=== PATIENT | female | born 1990 | race Caucasian/White ===

== ENCOUNTER 2019-04-21 05:07 | Emergency (ER) | payer SELFPAY ==
[2019-04-21 06:04] LABS: Urine Blood 1+ (NEG); Urine Glucose NEGATIVE (NEG); Urine Protein TRACE (NEG); Urine Specific Gravity 1.025 (1.005-1.030); Urine pH 5.5 (5.0-7.0)
[2019-04-21 06:07] LABS: Basophils % 0.8 % (0-1.3); Eosinophils % 2.6 % (0-4.4); Hematocrit 36.2 % (36.0-45.0); Lymphocytes % 30.9 % (15.3-44.8); MPV 8.6 fL (7.6-11.3); Monocytes % 8.1 % (3.3-12.3); RBC Red Blood Cell Count 4.77 M/uL (3.86-4.86)
[2019-04-21 06:21] LABS: BUN Blood Urea Nitrogen 13 mg/dL (7-18); Bicarbonate 28 mmol/L (21-32); Glucose Level 124 mg/dL (74-106); Potassium 3.7 mmol/L (3.5-5.1); Sodium Level 138 mmol/L (136-145)
--- NOTE | 2019-04-21 08:39 | EDPHYS ---
Physician Documentation [facility] Name: Miley Calderón Age: 29 yrs Sex: Female : 1990 Arrival Date: 04/21/2019 Time: 05:11 Bed 14 Private MD: Von Oliveira ED Physician Sancho Buchanan HPI: 04/21 06:22 This 29 yrs old Female presents to ER via Ambulatory with complaints of jr8 Headache, Dizziness, Nausea. 06:22 The patient complains of pain to the left base of the skull and right base of the jr8 skull. The patient describes the headache as throbbing. Onset: The symptoms/episode began/occurred acutely, today. Associated signs and symptoms: Pertinent positives: dizziness, nausea. Severity of symptoms: At its worst the pain was moderate, in the emergency department the pain has improved, mildly. Headache History: The patient has had previous headaches and this one is different than previous episodes. The symptoms are alleviated by nothing. the symptoms are aggravated by lights, movement, noise. The patient has not experienced similar symptoms in the past. The patient has not recently seen a physician. Patient status post coitus with sudden onset headache. 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 - Social history:: Smoking status: Patient/guardian denies using tobacco. - Ebola Screening: : No symptoms or risks identified at this time. ROS: 06:22 Eyes: Negative for injury, pain, redness, and discharge, ENT: Negative for injury, jr8 pain, and discharge, Neck: Negative for injury, pain, and swelling, Cardiovascular: Negative for chest pain, palpitations, and edema, Respiratory: Negative for shortness of breath, cough, wheezing, and pleuritic chest pain, Back: Negative for injury and pain, MS/Extremity: Negative for injury and deformity, Skin: Negative for injury, rash, and discoloration. 06:22 Abdomen/GI: Positive for nausea, Negative for abdominal pain, vomiting, diarrhea, abdominal cramps, abdominal distension, anorexia, dysphagia, hematemesis, black/tarry stool, rectal pain, rectal bleeding, bowel incontinence, flatulence. 06:22 Neuro: Positive for dizziness, headache. Exam: 06:22 Eyes: Pupils equal round and reactive to light, extra-ocular motions intact. Lids and jr8 lashes normal. Conjunctiva and sclera are non-icteric and not injected. Cornea within normal limits. Periorbital areas with no swelling, redness, or edema. ENT: Nares patent. No nasal discharge, no septal abnormalities noted. Tympanic membranes are normal and external auditory canals are clear. Oropharynx with no redness, swelling, or masses, exudates, or evidence of obstruction, uvula midline. Mucous membranes moist. Neck: Trachea midline, no thyromegaly or masses palpated, and no cervical lymphadenopathy. Supple, full range of motion without nuchal rigidity, or vertebral point tenderness. No Meningismus. Cardiovascular: Regular rate and rhythm with a normal S1 and S2. No gallops, murmurs, or rubs. Normal PMI, no JVD. No pulse deficits. Respiratory: Lungs have equal breath sounds bilaterally, clear to auscultation and percussion. No rales, rhonchi or wheezes noted. No increased work of breathing, no retractions or nasal flaring. Abdomen/GI: Soft, non-tender, with normal bowel sounds. No distension or tympany. No guarding or rebound. No evidence of tenderness throughout. Back: No spinal tenderness. No costovertebral tenderness. Full range of motion. Skin: Warm, dry with normal turgor. Normal color with no rashes, no lesions, and no evidence of cellulitis. MS/ Extremity: Pulses equal, no cyanosis. Neurovascular intact. Full, normal range of motion. Neuro: Awake and alert, GCS 15, oriented to person, place, time, and situation. Cranial nerves II-XII grossly intact. Motor strength 5/5 in all extremities. Sensory grossly intact. Cerebellar exam normal. Normal gait. Vital Signs: 05:31 BP 142 / 108; Pulse 112; Resp 18; Temp 98.1(O); Pulse Ox 100% on R/A; Weight 95.25 kg; lp1 Height 5 ft. 4 in. (162.56 cm); Pain 2/10; 06:30 BP 145 / 84; Pulse 103; Resp 18; Pulse Ox 100% on R/A; lp1 07:46 BP 133 / 75; Pulse 95; Resp 14; Temp 98.2(O); Pulse Ox 99% on R/A; Pain 0/10; ls4 05:31 Body Mass Index 36.05 (95.25 kg, 162.56 cm) lp1 MDM: 06:08 Patient medically screened. jr8 08:36 Data reviewed: vital signs, nurses notes, lab test result(s), radiologic studies, CT jr8 scan. Data interpreted: Pulse oximetry: on room air is 99 %. Interpretation: normal. Counseling: I had a detailed discussion with the patient and/or guardian regarding: the historical points, exam findings, and any diagnostic results supporting the discharge/admit diagnosis, lab results, radiology results, the need for outpatient follow up, a family practitioner, to return to the emergency department if symptoms worsen or persist or if there are any questions or concerns that arise at home. Response to treatment: the patient's symptoms have markedly improved after treatment. ED course: Patient opted not to have CTA completed due to financial constraints. Recommended close f/u at this point. Symptoms resolving and with no focal deficits or acute physical exam findings. VS stable. Will d/c home and if worse to come back immediately. Patient good with this plan . 04/21 05:42 Order name: CBC with Diff; Complete Time: 06:51 gs 04/21 05:42 Order name: Basic Metabolic Panel; Complete Time: 06:51 gs 04/21 05:42 Order name: CT Head Brain wo Cont 04/21 06:00 Order name: Urine Dipstick--Ancillary (enter results) ar5 04/21 06:00 Order name: Urine --Ancillary (enter results); Complete Time: 06:21 ar5 04/21 06:01 Order name: Urine Dipstick-Ancillary; Complete Time: 06:21 EDMA 04/21 05:42 Order name: Urine Test (obtain specimen); Complete Time: 06:23 gs 04/21 05:42 Order name: Urine Dipstick-Ancillary (obtain specimen); Complete Time: 06:23 gs Administered Medications: No medications were administered Disposition: 04/21/19 08:38 Discharged to Home. Impression: Headache associated with sexual activity. - Condition is Stable. - Discharge Instructions: General Headache Without Cause. - Medication Reconciliation Form, Thank You Letter, Antibiotic Education, Prescription Opioid Use form. - Follow up: Private Physician; When: 1 - 2 days; Reason: Recheck today's complaints, Continuance of care, Re-evaluation by your physician. - Problem is new. - Symptoms have improved. Signatures: Dispatcher [employer] [facility] Darlene Barrios, RN RN lp1 Jet Bryant PA PA jr8 Sancho Buchanan MD MD gs Flor Thrasher RN RN ls4 Corrections: (The following items were deleted from the chart) 06:17 06:12 Head Brain Wo Cont+CT.RAD.BRZ ordered. [facility] 08:59 08:38 04/21/2019 08:38 Discharged to Home. Impression: Headache associated with sexual ls4 activity. Condition is Stable. Forms are Medication Reconciliation Form, Thank You Letter, Antibiotic Education, Prescription Opioid Use. Follow up: Private Physician; When: 1 - 2 days; Reason: Recheck today's complaints, Continuance of care, Re-evaluation by your physician. Problem is new. Symptoms have improved. jr8
--- NOTE | 2019-04-21 08:39 | ER ---
Nurse's Notes [facility] Name: Miley Calderón Age: 29 yrs Sex: Female : 1990 Arrival Date: 04/21/2019 Time: 05:11 Bed 14 Private MD: Von Oliveira Diagnosis: Headache associated with sexual activity Presentation: 04/21 05:27 Presenting complaint: Patient states: About 0430, patient began having migraine lp1 like-symptoms in head radiating down neck, "It was post-orgasm and I began having throbbing in the back of my head, blurred vision for about 20 minutes. I can feel transient like tingling on the sides of my head right now"; Patient states blurred vision is resolving at this time; Complaint of nausea, dizziness; Denies any light sensitivity, vomiting;. 05:31 Transition of care: patient was not received from another setting of care. Onset of lp1 symptoms was April 21, 2019 at 04:30. Risk Assessment: Do you want to hurt yourself or someone else? Patient reports no desire to harm self or others. Initial Sepsis Screen: Does the patient meet any 2 criteria? No. Patient's initial sepsis screen is negative. Does the patient have a suspected source of infection? No. Patient's initial sepsis screen is negative. Care prior to arrival: None. 05:31 Method Of Arrival: Ambulatory lp1 05:31 Acuity: JIMMY 3 lp1 Triage Assessment: 05:34 Headache History: The patient has had previous headaches and this one is more severe lp1 than previous episodes. 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 - Social history:: Smoking status: Patient/guardian denies using tobacco. - Ebola Screening: : No symptoms or risks identified at this time. Screenin:34 Abuse screen: Denies threats or abuse. Denies injuries from another. Nutritional lp1 screening: No deficits noted. Tuberculosis screening: No symptoms or risk factors identified. Fall Risk None identified. Assessment: 05:33 General: Appears in no apparent distress. Behavior is anxious. Pain: Complains of pain lp1 in back of head Pain currently is 2 out of 10 on a pain scale. Pain began 1 hour ago. Also complains of nausea, dizziness. Neuro: Level of Consciousness is awake, alert, obeys commands, Oriented to person, place, time, situation, Hardware Installation Coordinator are equal bilaterally Moves all extremities. Full function Gait is steady, Speech is normal, Pupils are PERRLA, Intact Reports dizziness, headache pressure behind eyes. Cardiovascular: Patient's skin is warm and dry. Respiratory: Respiratory effort is even, unlabored. GI: Abdomen is non-distended, Reports nausea. : No signs and/or symptoms were reported regarding the genitourinary system. EENT: No signs and/or symptoms were reported regarding the EENT system. Derm: Skin is pink, warm \\T\\ dry. Musculoskeletal: No deficits noted. 06:30 Reassessment: Patient appears in no apparent distress at this time. Patient is alert, lp1 oriented x 3, equal unlabored respirations, skin warm/dry/pink. 07:48 Reassessment: Patient appears in no apparent distress at this time. Patient and/or ls4 family updated on plan of care and expected duration. Pain level reassessed. Patient is alert, oriented x 3, equal unlabored respirations, skin warm/dry/pink. 08:36 Reassessment: pt refused ct angio. Jet MASCORRO notified. ls4 Vital Signs: 05:31 BP 142 / 108; Pulse 112; Resp 18; Temp 98.1(O); Pulse Ox 100% on R/A; Weight 95.25 kg; lp1 Height 5 ft. 4 in. (162.56 cm); Pain 2/10; 06:30 BP 145 / 84; Pulse 103; Resp 18; Pulse Ox 100% on R/A; lp1 07:46 BP 133 / 75; Pulse 95; Resp 14; Temp 98.2(O); Pulse Ox 99% on R/A; Pain 0/10; ls4 05:31 Body Mass Index 36.05 (95.25 kg, 162.56 cm) lp1 ED Course: 05:11 Patient arrived in ED. do 05:12 Von Oliveira MD is Private Physician. do 05:27 Darlene Barrios, KENNETH is Primary Nurse. lp1 05:31 Triage completed. lp1 05:31 Arm band placed on left wrist. lp1 05:34 Patient has correct armband on for positive identification. lp1 05:50 Inserted saline lock: 22 gauge in right hand, using aseptic technique. Blood collected. lp1 06:08 Jet Bryant [facility] is [facility]. jr8 06:08 Sancho Buchanan MD is Attending Physician. jr8 06:17 CT Head Brain wo Cont In Process Unspecified. EDMS 07:46 Urine Dipstick--Ancillary (enter results) Sent. ls4 07:48 No provider procedures requiring assistance completed. ls4 08:29 Note: pt refusing ct scan at this time. 0836. Patient moved to CT via wheelchair. jg6 08:59 IV discontinued, intact, bleeding controlled, No redness/swelling at site. Pressure ls4 dressing applied. Administered Medications: No medications were administered Outcome: 08:38 Discharge ordered by . jr8 08:59 Patient left the ED. ls4 08:59 Condition: stable ls4 08:59 Discharged to home ambulatory. ls4 08:59 Discharge instructions given to Instructed on Demonstrated understanding of Signatures: Dispatcher [employer] [facility] Darlene Barrios, RN RN lp1 Jet Bryant PA PA jr8 Zuleyka Gee Jessica jg6 Flor Thrasher, RN RN ls4 Corrections: (The following items were deleted from the chart) 05:35 05:33 Pain: Complains of pain in back of head Pain currently is 2 out of 10 on a pain lp1 scale. lp1 05:35 05:33 Pain: Complains of pain in back of head Pain currently is 2 out of 10 on a pain lp1 scale. Pain began 1 hour ago. lp1
--- NOTE | 2019-04-21 09:46 | RAD REPORT ---
EXAM DESCRIPTION: CT - Head Brain Wo Cont - 04/21/2019 6:30 am CLINICAL HISTORY: The patient is 29 years old and is Female; HEADACHE TECHNIQUE: Axial computed tomography images of the head/brain without intravenous contrast. Sagitt al and coronal reformatted images were created and reviewed. This CT exam was performed using one o r more of the following dose reduction techniques: automated exposure control, adjustment of the mA and/or kV according to patient size, and/or use of iterative reconstruction technique. COMPARISON: No relevant prior studies available. FINDINGS: Brain: Unremarkable. No hemorrhage. No significant white matter disease. No edema. Ventricles: Unremarkable. No ventriculomegaly. Bones/joints: Unremarkable. No acute fracture. Soft tissues: Unremarkable. Sinuses: Unremarkable as visualized. No acute sinusitis. Mastoid air cells: Unremarkable as visualized. No mastoid effusion. IMPRESSION: No acute intracranial findings. Electronically signed by: Rigo Skelton MD 04/21/2019 6:25 AM CDT Due to temporary technical issues with the PACS/Fluency reporting system, reports are being signed by the in house radiologist as a courtesy to ensure prompt reporting. The interpreting radiologist is f ully responsible for the content of the report.
[2019-04-23 16:47] VITALS: BP 133/75; TEMP 98.2; O2SAT 99
== END 2019-04-21 08:59 | disposition home or self-care (01) ==
LOC: ER 05:07
DX: G44.82 Headache associated with sexual activity (principal); Z88.5 Allergy status to narcotic agent
CPT/HCPCS: 36415; 70450; 80048; 81003; 81025; 85025; 99284

== ENCOUNTER 2019-08-11 18:26 | Emergency (ER) | payer SELFPAY ==
[2019-08-11 19:31] LABS: Urine Blood 2+ (NEG); Urine Glucose NEGATIVE (NEG); Urine Protein TRACE (NEG); Urine Specific Gravity >1.030 (1.005-1.030); Urine pH 5.5 (5.0-7.0)
[2019-08-11] MEDS ORDERED: NA CHLORIDE 0.9% 1,000 ML ONE (19:55)
[2019-08-11 20:16] LABS: Absolute Lymphocytes (CBC) 1.2 K/uL (0.7-4.9); Basophils % 0.7 % (0-1.3); Hematocrit 34.3 % (36.0-45.0); Lymphocytes % 19.9 % (15.3-44.8); MPV 8.4 fL (7.6-11.3); RBC Red Blood Cell Count 4.54 M/uL (3.86-4.86)
[2019-08-11 20:25] LABS: Potassium 3.7 mmol/L (3.5-5.1)
[2019-08-11 21:38] LABS: Urine Specific Gravity >1.030 (1.005-1.030)
--- NOTE | 2019-08-11 22:03 | ER ---
Nurse's Notes [facility] Name: Miley Bedoya Age: 29 yrs Sex: Female : 1990 Arrival Date: 08/11/2019 Time: 18:30 Bed 19 Private MD: Diagnosis: Abnormal uterine and vaginal bleeding, unspecified;Dysmenorrhea, unspecified Presentation: 08/11 18:55 Presenting complaint: Patient states: I've soaked 6 super pads today, lots of blood jl7 clots, low back pain, I might be and I'm not sure if it's a miscarriage or not, I have been dizzy today too. Transition of care: patient was not received from another setting of care. Onset of symptoms was August 11, 2019. Risk Assessment: Do you want to hurt yourself or someone else? Patient reports no desire to harm self or others. Initial Sepsis Screen: Does the patient meet any 2 criteria? No. Patient's initial sepsis screen is negative. Does the patient have a suspected source of infection? No. Patient's initial sepsis screen is negative. Care prior to arrival: None. 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 - Social history:: Smoking status: Patient/guardian denies using tobacco. - Ebola Screening: : No symptoms or risks identified at this time. Screenin:24 Abuse screen: Denies threats or abuse. Denies injuries from another. Nutritional lp1 screening: No deficits noted. Tuberculosis screening: No symptoms or risk factors identified. Fall Risk None identified. Assessment: 19:23 General: Appears in no apparent distress. Behavior is calm, cooperative, appropriate lp1 for age. Pain: Complains of pain in low back area and left low back. Neuro: Level of Consciousness is awake, alert, obeys commands, Oriented to person, place, time, situation, Gait is steady, Reports dizziness. Cardiovascular: Patient's skin is warm and dry. Respiratory: Respiratory effort is even, unlabored. GI: Abdomen is non-distended. : Reports vaginal bleeding that is bright red, with clots, heavy flow since yesterday. EENT: No signs and/or symptoms were reported regarding the EENT system. Derm: Skin is pink, warm \T\ dry. Musculoskeletal: No deficits noted. 20:30 Reassessment: Patient appears in no apparent distress at this time. Patient and/or lp1 family updated on plan of care and expected duration. Pain level reassessed. Patient is alert, oriented x 3, equal unlabored respirations, skin warm/dry/pink. 21:35 Reassessment: Patient appears in no apparent distress at this time. Patient is alert, lp1 oriented x 3, equal unlabored respirations, skin warm/dry/pink. Patient states feeling better. Vital Signs: 18:57 BP 141 / 100; Pulse 112; Resp 18 S; Temp 98.4(O); Pulse Ox 100% on R/A; Pain 5/10; jl7 20:00 BP 137 / 99; Pulse 88; Resp 16; Pulse Ox 100% on R/A; lp1 20:30 BP 127 / 87; Pulse 87; Resp 16; Pulse Ox 100% on R/A; lp1 21:35 BP 129 / 87; Pulse 83; Resp 16; Temp 98.2(O); Pulse Ox 100% on R/A; lp1 ED Course: 18:30 Patient arrived in ED. mr 18:56 Triage completed. jl7 18:57 Arm band placed on right wrist. jl7 18:59 Von Chahal, RN is Primary Nurse. bp 19:24 Patient has correct armband on for positive identification. Placed in gown. lp1 19:38 Baltazar Suresh MD is Attending Physician. nancy 20:00 Inserted saline lock: 22 gauge in right hand, using aseptic technique. Blood collected. lp1 22:03 Kaleb Flood MD is Referral Physician. nancy 22:11 No provider procedures requiring assistance completed. IV discontinued, bleeding lp1 controlled, No redness/swelling at site. Pressure dressing applied. Administered Medications: 20:08 Drug: NS 0.9% 1000 ml Route: IV; Rate: 1 bolus; Site: right hand; lp1 21:36 Follow up: IV Status: Completed infusion; IV Intake: 1000ml lp1 Intake: 21:36 IV: 1000ml; Total: 1000ml. lp1 Outcome: 22:03 Discharge ordered by . nancy 22:11 Discharged to home ambulatory. lp1 22:11 Condition: good 22:11 Discharge instructions given to patient, Instructed on discharge instructions, follow up and referral plans. medication usage, Demonstrated understanding of instructions, follow-up care, medications, Prescriptions given X 2. 22:12 Patient left the ED. lp1 Signatures: Baltazar Suresh MD MD cha Rivera, Mary mr Pena, Laura, RN RN lp1 Koko Maciel RN RN jl7 Von Chahal RN RN bp
--- NOTE | 2019-08-11 22:04 | EDPHYS ---
Physician Documentation [facility] Name: Miley Bedoya Age: 29 yrs Sex: Female : 1990 Arrival Date: 08/11/2019 Time: 18:30 Bed 19 Private MD: ED Physician Baltazar Suresh HPI: 08/11 19:40 This 29 yrs old Female presents to ER via Ambulatory with complaints of nancy Vaginal Bleeding. 19:40 The patient presents with vaginal bleeding that is moderate. 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 - Social history:: Smoking status: Patient/guardian denies using tobacco. - Ebola Screening: : No symptoms or risks identified at this time. ROS: 22:01 Constitutional: Negative for fever, chills, and weight loss, Eyes: Negative for injury, nancy pain, redness, and discharge, ENT: Negative for injury, pain, and discharge, Neck: Negative for injury, pain, and swelling, Cardiovascular: Negative for chest pain, palpitations, and edema, Respiratory: Negative for shortness of breath, cough, wheezing, and pleuritic chest pain, Abdomen/GI: Negative for abdominal pain, nausea, vomiting, diarrhea, and constipation, Back: Negative for injury and pain, : Negative for injury, bleeding, discharge, and swelling, MS/Extremity: Negative for injury and deformity, Skin: Negative for injury, rash, and discoloration, Psych: Negative for depression, anxiety, suicide ideation, homicidal ideation, and hallucinations, Allergy/Immunology: Negative for hives, rash, and allergies, Endocrine: Negative for neck swelling, polydipsia, polyuria, polyphagia, and marked weight changes, Hematologic/Lymphatic: Negative for swollen nodes, abnormal bleeding, and unusual bruising. 22:01 : Positive for pelvic pain, vaginal bleeding. 22:01 Neuro: Positive for dizziness. Exam: 22:01 Constitutional: This is a well developed, well nourished patient who is awake, alert, nancy and in no acute distress. Head/Face: Normocephalic, atraumatic. Eyes: Pupils equal round and reactive to light, extra-ocular motions intact. Lids and lashes normal. Conjunctiva and sclera are non-icteric and not injected. Cornea within normal limits. Periorbital areas with no swelling, redness, or edema. ENT: Nares patent. No nasal discharge, no septal abnormalities noted. Tympanic membranes are normal and external auditory canals are clear. Oropharynx with no redness, swelling, or masses, exudates, or evidence of obstruction, uvula midline. Mucous membranes moist. Neck: Trachea midline, no thyromegaly or masses palpated, and no cervical lymphadenopathy. Supple, full range of motion without nuchal rigidity, or vertebral point tenderness. No Meningismus. Chest/axilla: Normal chest wall appearance and motion. Nontender with no deformity. No lesions are appreciated. Cardiovascular: Regular rate and rhythm with a normal S1 and S2. No gallops, murmurs, or rubs. Normal PMI, no JVD. No pulse deficits. Respiratory: Lungs have equal breath sounds bilaterally, clear to auscultation and percussion. No rales, rhonchi or wheezes noted. No increased work of breathing, no retractions or nasal flaring. Abdomen/GI: Soft, non-tender, with normal bowel sounds. No distension or tympany. No guarding or rebound. No evidence of tenderness throughout. Back: No spinal tenderness. No costovertebral tenderness. Full range of motion. Skin: Warm, dry with normal turgor. Normal color with no rashes, no lesions, and no evidence of cellulitis. MS/ Extremity: Pulses equal, no cyanosis. Neurovascular intact. Full, normal range of motion. Neuro: Awake and alert, GCS 15, oriented to person, place, time, and situation. Cranial nerves II-XII grossly intact. Motor strength 5/5 in all extremities. Sensory grossly intact. Cerebellar exam normal. Normal gait. Psych: Awake, alert, with orientation to person, place and time. Behavior, mood, and affect are within normal limits. 22:01 : CVA tenderness, is absent, Pelvic Exam: is not necessary for this patient. Vital Signs: 18:57 BP 141 / 100; Pulse 112; Resp 18 S; Temp 98.4(O); Pulse Ox 100% on R/A; Pain 5/10; jl7 20:00 BP 137 / 99; Pulse 88; Resp 16; Pulse Ox 100% on R/A; lp1 20:30 BP 127 / 87; Pulse 87; Resp 16; Pulse Ox 100% on R/A; lp1 21:35 BP 129 / 87; Pulse 83; Resp 16; Temp 98.2(O); Pulse Ox 100% on R/A; lp1 MDM: 19:38 Patient medically screened. [facility] 22:02 Data reviewed: vital signs, nurses notes, lab test result(s). [facility] 08/11 19:21 Order name: Urine Dipstick--Ancillary (enter results); Complete Time: 19:38 cm6 08/11 19:39 Order name: Basic Metabolic Panel; Complete Time: 21:23 [facility] 08/11 19:21 Order name: Urine Dipstick-Ancillary (obtain specimen); Complete Time: 19:35 cm6 08/11 19:39 Order name: CBC with Diff; Complete Time: 21:23 [facility] 08/11 21:26 Order name: Urine --Ancillary (enter results); Complete Time: 21:58 aa1 08/11 19:21 Order name: Urine Test (obtain specimen); Complete Time: 19:35 cm6 08/11 19:39 Order name: IV Saline Lock; Complete Time: 20:18 [facility] 08/11 19:39 Order name: Labs collected and sent; Complete Time: 20:18 [facility] 08/11 19:39 Order name: NPO; Complete Time: 20:18 [facility] Administered Medications: 20:08 Drug: NS 0.9% 1000 ml Route: IV; Rate: 1 bolus; Site: right hand; lp1 21:36 Follow up: IV Status: Completed infusion; IV Intake: 1000ml lp1 Disposition: 08/11/19 22:03 Discharged to Home. Impression: Abnormal uterine and vaginal bleeding, unspecified, Dysmenorrhea, unspecified. - Condition is Stable. - Discharge Instructions: Abnormal Uterine Bleeding, Dysmenorrhea, Menorrhagia, Pelvic Rest, Abnormal Uterine Bleeding, [id number], Dysmenorrhea, [id number]. - Prescriptions for Ibuprofen 600 mg Oral Tablet - take 1 tablet by ORAL route every 6 hours As needed take with food; 20 tablet. Vitamin 27- 0.8 mg Oral Tablet - take 1 tablet by ORAL route once daily; 30 tablet. - Medication Reconciliation Form, Thank You Letter, Antibiotic Education, Prescription Opioid Use form. - Follow up: Private Physician; When: 2 - 3 days; Reason: Recheck today's complaints, Continuance of care, Re-evaluation by your physician. Follow up: Kaleb Flood MD; When: 2 - 3 days; Reason: Recheck today's complaints, Re-evaluation by your physician. - Problem is new. - Symptoms have improved. Signatures: Dispatcher [employer] EDMS Baltazar Suresh MD MD cha Pena, Laura RN RN lp1 Koko Maciel RN RN jl7 Tatum Gómez 6 Corrections: (The following items were deleted from the chart) 22:03 22:03 08/11/2019 22:03 Discharged to Home. Impression: Abnormal uterine and vaginal nancy bleeding, unspecified; Dysmenorrhea, unspecified. Condition is Stable. Forms are Medication Reconciliation Form, Thank You Letter, Antibiotic Education, Prescription Opioid Use. Follow up: Private Physician; When: 2 - 3 days; Reason: Recheck today's complaints, Continuance of care, Re-evaluation by your physician. Problem is new. Symptoms have improved. [facility] 22:12 22:03 08/11/2019 22:03 Discharged to Home. Impression: Abnormal uterine and vaginal lp1 bleeding, unspecified; Dysmenorrhea, unspecified. Condition is Stable. Forms are Medication Reconciliation Form, Thank You Letter, Antibiotic Education, Prescription Opioid Use. Follow up: Private Physician; When: 2 - 3 days; Reason: Recheck today's complaints, Continuance of care, Re-evaluation by your physician. Follow up: Kaleb Flood; When: 2 - 3 days; Reason: Recheck today's complaints, Re-evaluation by your physician. Problem is new. Symptoms have improved. nancy
[2019-08-11 22:28] VITALS: O2SAT 100
[2019-08-11 22:32] VITALS: BP 129/87; TEMP 98.2
== END 2019-08-11 22:12 | disposition home or self-care (01) ==
LOC: ER 18:26
DX: N94.6 Dysmenorrhea, unspecified (principal); Z88.5 Allergy status to narcotic agent
CPT/HCPCS: 36415; 80048; 81003; 81025; 85025; J7030

== ENCOUNTER 2019-09-10 15:51 | Emergency (ER) | payer SELFPAY ==
--- NOTE | 2019-09-10 18:18 | RAD REPORT ---
EXAM DESCRIPTION: Marilu Navarro (2 Views)09/10/2019 5:58 pm CLINICAL HISTORY: Cough COMPARISON: 2014 FINDINGS: The lungs appear clear of acute infiltrate. The heart is normal size IMPRESSION: No acute abnormalities displayed
[2019-09-10] MEDS ORDERED: ALBUTEROL 2.5 MG/3 ML NEB SOL ONE (18:41)
[2019-09-10] MEDS ORDERED: IPRATROPIUM BROM 0.5MG/2.5ML ONE (18:41)
--- NOTE | 2019-09-10 20:32 | ER ---
Nurse's Notes [facility] Name: Miley Bedoya Age: 29 yrs Sex: Female : 1990 Arrival Date: 09/10/2019 Time: 15:52 Bed 8 Private MD: Von Oliveira Diagnosis: Acute upper respiratory infection, unspecified Presentation: 09/10 16:49 Presenting complaint: Patient states: She was seen at her doctor's office yesterday and aj1 diagnosed with bronchitis, she was given an inhaler and cough medicine but she was told if it got worse to come to the emergency room and today she is feeling worse. Transition of care: patient was not received from another setting of care. Onset of symptoms was September 10, 2019. Risk Assessment: Do you want to hurt yourself or someone else? Patient reports no desire to harm self or others. Initial Sepsis Screen: Does the patient meet any 2 criteria? HR > 90 bpm. No. Patient's initial sepsis screen is negative. Does the patient have a suspected source of infection? Yes: Productive cough/pneumonia. Care prior to arrival: None. 16:49 Method Of Arrival: Ambulatory aj 16:49 Acuity: JIMMY 3 aj1 17:47 Note Patient states that she is feeling worse and she feels like she is going to pass aj1 out when she coughs. Vital signs rechecked. Triage Assessment: 16:50 General: Appears in no apparent distress. comfortable, Behavior is calm, cooperative, aj1 appropriate for age. Pain: Complains of pain in chest Pain currently is 3 out of 10 on a pain scale. Aggravated by cough, deep breathing. Neuro: Level of Consciousness is awake, alert, obeys commands, Oriented to person, place, time, situation. Cardiovascular: Patient's skin is warm and dry. Respiratory: Reports cough that is non-productive, Airway is patent Respiratory effort is even, unlabored, Respiratory pattern is regular, symmetrical. 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 - Social history:: Smoking status: Patient/guardian denies using tobacco. - Ebola Screening: : Patient denies travel to an Ebola-affected area in the 21 days before illness onset. Screenin:50 Abuse screen: Denies threats or abuse. Nutritional screening: No deficits noted. aa5 Tuberculosis screening: No symptoms or risk factors identified. Fall Risk None identified. Assessment: 17:50 General: Appears uncomfortable, Behavior is calm, cooperative. Pain: Complains of pain aa5 in chest with cough and throat. Neuro: Level of Consciousness is awake, alert, obeys commands, Oriented to person, place, time, situation. Cardiovascular: Heart tones S1 S2 present Rhythm is regular. Respiratory: Reports shortness of breath cough that is productive, with brownish sputum Airway is patent Respiratory effort is even, unlabored, Respiratory pattern is regular, symmetrical, Breath sounds are clear bilaterally. GI: Abdomen is round non-distended, Bowel sounds present X 4 quads. Abd is soft and non tender X 4 quads. : No signs and/or symptoms were reported regarding the genitourinary system. EENT: Reports sore throat . Derm: Skin is pink, warm \T\ dry. Musculoskeletal: Range of motion: intact in all extremities. 17:52 Reassessment: Pt taken to x-ray via wheelchair. . aa5 19:15 Reassessment: Patient appears in no apparent distress at this time. Patient and/or cc3 family updated on plan of care and expected duration. Pain level reassessed. Patient is alert, oriented x 3, equal unlabored respirations, skin warm/dry/pink. Received this female patient from morning shift KENNETH Anglin as a case of bronchitis. NO IV cannula in situ. Patient denies pain at this time. Patient states feeling better. Patient states symptoms have improved. General: Appears in no apparent distress. comfortable, Behavior is calm, cooperative, appropriate for age. Pain: Denies pain. Neuro: Level of Consciousness is awake, alert, obeys commands, Oriented to person, place, time, situation, Appropriate for age. Cardiovascular: Denies chest pain, Heart tones S1 S2 present Capillary refill < 3 seconds in bilateral fingers Patient's skin is warm and dry. Respiratory: Airway is patent Respiratory effort is even, unlabored, Respiratory pattern is regular, symmetrical, Breath sounds are clear bilaterally. GI: Abdomen is round non-distended, Bowel sounds present X 4 quads. Abd is soft and non tender X 4 quads. : No signs and/or symptoms were reported regarding the genitourinary system. EENT: No signs and/or symptoms were reported regarding the EENT system. Derm: Skin is intact, is healthy with good turgor, Skin is pink, warm \T\ dry. normal. Musculoskeletal: Circulation, motion, and sensation intact. Range of motion: intact in all extremities. 20:35 Reassessment: Patient appears in no apparent distress at this time. Patient and/or cc3 family updated on plan of care and expected duration. Pain level reassessed. Patient is alert, oriented x 3, equal unlabored respirations, skin warm/dry/pink. KELLIE Hunter discharged the patient home, no prescription given. No IV cannula in situ. Patient left ER vitally stable and ambulatory. No valuables left in the patient's room. Patient denies pain at this time. Patient states feeling better. Patient states symptoms have improved. Vital Signs: 16:50 BP 152 / 94; Pulse 97; Resp 18; Temp 97.5; Pulse Ox 98% on R/A; Weight 89.36 kg (R); aj1 Height 5 ft. 4 in. (162.56 cm) (R); Pain 3/10; 17:47 BP 147 / 90; Pulse 108; Resp 20; Pulse Ox 98% on R/A; aj1 19:30 BP 138 / 81; Pulse 96; Resp 19 S; Temp 98.7(O); Pulse Ox 99% on R/A; cc3 20:15 BP 139 / 79; Pulse 116; Resp 18 S; Pulse Ox 97% on R/A; cc3 16:50 Body Mass Index 33.81 (89.36 kg, 162.56 cm) aj1 ED Course: 15:52 Patient arrived in ED. ag5 15:52 Von Oliveira MD is Private Physician. ag5 16:50 Triage completed. aj1 16:50 Arm band placed on. aj1 17:15 [facility]C [facility] kb 17:15 Kamran Peguero MD is Attending Physician. kb 17:50 Linnette Corado, RN is Primary Nurse. aa5 17:50 Patient has correct armband on for positive identification. Bed in low position. Call aa5 light in reach. Side rails up X 1. Pulse ox on. NIBP on. 17:57 Chest Pa And Lat (2 Views) XRAY In Process Unspecified. EDMS 19:00 Report given to KENNETH San and Annetta RN. aa5 20:30 No provider procedures requiring assistance completed. Patient did not have IV access cc3 during this emergency room visit. Administered Medications: 18:42 Drug: DuoNeb (3:1) (2.5 mg - 0.5 mg) 3 ml Route: Nebulizer; aa5 19:15 Follow up: Response: No adverse reaction; Marked relief of symptoms cc3 Outcome: 20:32 Discharge ordered by . kb 20:35 Discharged to home ambulatory. cc3 20:35 Condition: stable 20:35 Discharge instructions given to patient, Instructed on discharge instructions, follow up and referral plans. Demonstrated understanding of instructions, follow-up care. 20:37 Patient left the ED. cc3 Signatures: Dispatcher [employer] EDAK Arielle Hunter, BAT CARRIER-C BAT CARRIER-Ana Barrera RN RN aj1 Linnette Corado, RN RN aa5 Annetta Garcia cc3 Toyin Rahman 5
--- NOTE | 2019-09-10 20:32 | EDPHYS ---
Physician Documentation [facility] Name: Miley Bedoya Age: 29 yrs Sex: Female : 1990 Arrival Date: 09/10/2019 Time: 15:52 Bed 8 Private MD: Von Oliveira ED Physician Kamran Peguero HPI: 09/10 22:18 This 29 yrs old Female presents to ER via Ambulatory with complaints of kb Bronchitis. 22:18 The patient has shortness of breath at rest. Onset: The symptoms/episode began/occurred kb yesterday. Duration: The symptoms are continuous. 22:19 The patient's shortness of breath is aggravated by nothing, is alleviated by nothing. kb Associated signs and symptoms: Pertinent positives: non-productive cough. Severity of symptoms: At their worst the symptoms were moderate in the emergency department the symptoms are unchanged. The patient has experienced similar episodes in the past. The patient has been recently seen by a physician: the patient's primary care provider, yesterday, with similar presenting complaints. Pt reports she went to PCP yesterday for cough and shortness of breath. She was given a rescue inhaler, cough medication and doxycycline to start now and was told to come to ER if symptoms didn't get better. Reports she also prescriptions for a daily inhaler and a steroid pack, but was told to wait to start those until the antibiotics were complete. . 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 - Social history:: Smoking status: Patient/guardian denies using tobacco. - Ebola Screening: : Patient denies travel to an Ebola-affected area in the 21 days before illness onset. ROS: 22:17 Constitutional: Negative for fever, chills, and weight loss, ENT: Negative for injury, kb pain, and discharge, Neck: Negative for injury, pain, and swelling, Cardiovascular: Negative for chest pain, palpitations, and edema, Abdomen/GI: Negative for abdominal pain, nausea, vomiting, diarrhea, and constipation, Back: Negative for injury and pain, MS/Extremity: Negative for injury and deformity, Skin: Negative for injury, rash, and discoloration, Neuro: Negative for headache, weakness, numbness, tingling, and seizure. 22:17 Respiratory: Positive for cough, shortness of breath, wheezing. Exam: 22:18 Constitutional: This is a well developed, well nourished patient who is awake, alert, kb and in no acute distress. Head/Face: Normocephalic, atraumatic. ENT: Nares patent. No nasal discharge, no septal abnormalities noted. Tympanic membranes are normal and external auditory canals are clear. Oropharynx with no redness, swelling, or masses, exudates, or evidence of obstruction, uvula midline. Mucous membranes moist. Neck: Trachea midline, no thyromegaly or masses palpated, and no cervical lymphadenopathy. Supple, full range of motion without nuchal rigidity, or vertebral point tenderness. No Meningismus. Chest/axilla: Normal chest wall appearance and motion. Nontender with no deformity. No lesions are appreciated. Cardiovascular: Regular rate and rhythm with a normal S1 and S2. No gallops, murmurs, or rubs. Normal PMI, no JVD. No pulse deficits. Respiratory: Lungs have equal breath sounds bilaterally, clear to auscultation and percussion. No rales, rhonchi or wheezes noted. No increased work of breathing, no retractions or nasal flaring. Abdomen/GI: Soft, non-tender, with normal bowel sounds. No distension or tympany. No guarding or rebound. No evidence of tenderness throughout. Skin: Warm, dry with normal turgor. Normal color with no rashes, no lesions, and no evidence of cellulitis. MS/ Extremity: Pulses equal, no cyanosis. Neurovascular intact. Full, normal range of motion. Neuro: Awake and alert, GCS 15, oriented to person, place, time, and situation. Cranial nerves II-XII grossly intact. Motor strength 5/5 in all extremities. Sensory grossly intact. Cerebellar exam normal. Normal gait. Vital Signs: 16:50 BP 152 / 94; Pulse 97; Resp 18; Temp 97.5; Pulse Ox 98% on R/A; Weight 89.36 kg (R); aj1 Height 5 ft. 4 in. (162.56 cm) (R); Pain 3/10; 17:47 BP 147 / 90; Pulse 108; Resp 20; Pulse Ox 98% on R/A; aj1 19:30 BP 138 / 81; Pulse 96; Resp 19 S; Temp 98.7(O); Pulse Ox 99% on R/A; cc3 20:15 BP 139 / 79; Pulse 116; Resp 18 S; Pulse Ox 97% on R/A; cc3 16:50 Body Mass Index 33.81 (89.36 kg, 162.56 cm) aj1 MDM: 17:48 Patient medically screened. kb 20:31 Data reviewed: vital signs, nurses notes. Data interpreted: Pulse oximetry: on room air kb is 97 %. Interpretation: normal. Counseling: I had a detailed discussion with the patient and/or guardian regarding: the historical points, exam findings, and any diagnostic results supporting the discharge/admit diagnosis, radiology results, the need for outpatient follow up, a family practitioner, to return to the emergency department if symptoms worsen or persist or if there are any questions or concerns that arise at home. 09/10 16:52 Order name: Chest Pa And Lat (2 Views) XRAY; Complete Time: 18:24 aj Administered Medications: 18:42 Drug: DuoNeb (3:1) (2.5 mg - 0.5 mg) 3 ml Route: Nebulizer; aa5 19:15 Follow up: Response: No adverse reaction; Marked relief of symptoms cc3 Disposition: 09/10/19 20:32 Discharged to Home. Impression: Acute upper respiratory infection, unspecified. - Condition is Stable. - Discharge Instructions: Upper Respiratory Infection, Adult, [id number]. - School release form, Medication Reconciliation Form, Thank You Letter, Antibiotic Education, Prescription Opioid Use form. - Follow up: Emergency Department; When: As needed; Reason: Worsening of condition. Follow up: Private Physician; When: 2 - 3 days; Reason: Recheck today's complaints, Continuance of care, Re-evaluation by your physician. Signatures: Dispatcher [employer] EDArielle Merritt, JOEL-C JOEL-Ana Barrera RN RN aj1 Linnette Corado RN RN aa5 Annetta Garcia cc3 Corrections: (The following items were deleted from the chart) 20:37 20:32 09/10/2019 20:32 Discharged to Home. Impression: Acute upper respiratory cc3 infection, unspecified. Condition is Stable. Forms are Medication Reconciliation Form, Thank You Letter, Antibiotic Education, Prescription Opioid Use. Follow up: Emergency Department; When: As needed; Reason: Worsening of condition. Follow up: Private Physician; When: 2 - 3 days; Reason: Recheck today's complaints, Continuance of care, Re-evaluation by your physician. kb
[2019-09-10 22:48] VITALS: TEMP 98.7
[2019-09-10 22:50] VITALS: BP 139/79; O2SAT 97
== END 2019-09-10 20:37 | disposition home or self-care (01) ==
LOC: ER 15:51
DX: J06.9 Acute upper respiratory infection, unspecified (principal); Z88.5 Allergy status to narcotic agent
CPT/HCPCS: 71046; 94640; 99284

== ENCOUNTER 2019-10-29 10:46 | Emergency (ER) | payer SELFPAY ==
[2019-10-29 12:02] LABS: Absolute Lymphocytes (CBC) 1.7 K/uL (0.7-4.9); Basophils % 0.3 % (0-1.3); Hematocrit 38.7 % (36.0-45.0); Lymphocytes % 26.5 % (15.3-44.8); RBC Red Blood Cell Count 5.17 M/uL (3.86-4.86)
[2019-10-29 12:18] LABS: Urine Blood NEGATIVE (NEG); Urine Glucose NEGATIVE (NEG); Urine Protein NEGATIVE (NEG)
[2019-10-29 12:21] LABS: BUN Blood Urea Nitrogen 9 mg/dL (7-18); Bicarbonate 26 mmol/L (21-32); Glucose Level 117 mg/dL (74-106); HCG, Quantitative 7724 mIU/mL (1-3); Potassium 3.7 mmol/L (3.5-5.1); Sodium Level 139 mmol/L (136-145)
--- NOTE | 2019-10-29 13:14 | RAD REPORT ---
EXAM DESCRIPTION: US - Transvaginal OB - 10/29/2019 1:03 pm CLINICAL HISTORY: VAGINAL BLEEDING COMPARISON: No comparisons FINDINGS: A single gestational sac is seen within the uterus. The shape of the sac is within normal limits for gestational age. The sac appears to be within a a right sided moiety of a septate or subse ptate uterus. Based on mean sac diameter the estimated gestational age is 5 weeks 5 days. No yolk sac or pole yet visualized. The maternal adnexa are within normal limits. Both ovaries were obscured by bowel gas. IMPRESSION: Early IUP findings are present however without a yolk sac or pole yet apparent. Th is could indicate simply early IUP or be related to a blighted ovum. Recommend serial HCG levels and follow-up ultrasound in 10-12 days.
--- NOTE | 2019-10-29 13:25 | EDPHYS ---
Physician Documentation [facility] Name: Miley Bedoya Age: 29 yrs Sex: Female : 1990 Arrival Date: 10/29/2019 Time: 10:49 Bed 16 Private MD: ED Physician Jordan Gutiérrez HPI: 10/29 11:34 This 29 yrs old Female presents to ER via Ambulatory with complaints of jmm Vaginal Bleeding, + Preg <12wks. 11:34 The patient presents to the emergency department with vaginal bleeding, that is jmm moderate. The estimated gestational age is 8 weeks. Previous pregnancies: in previous pregnancies patient has had . Associated signs and symptoms: Pertinent positives: vaginal bleeding. Patient states she developed bleeding approx 3-4 days ago. Complains of right sided pelvic pain. . 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 - Social history:: Smoking status: Patient/guardian denies using tobacco. - Ebola Screening: : Patient negative for fever greater than or equal to 101.5 degrees Fahrenheit, and additional compatible Ebola Virus Disease symptoms Patient denies exposure to infectious person Patient denies travel to an Ebola-affected area in the 21 days before illness onset No symptoms or risks identified at this time. ROS: 11:34 Constitutional: Negative for fever, chills, and weight loss, Cardiovascular: Negative jmm for chest pain, palpitations, and edema, Respiratory: Negative for shortness of breath, cough, wheezing, and pleuritic chest pain. 11:34 : Positive for pelvic pain, vaginal bleeding. 11:34 All other systems are negative. Exam: 11:34 Constitutional: This is a well developed, well nourished patient who is awake, alert, jmm and in no acute distress. Head/Face: atraumatic. Eyes: EOMI, no conjunctival erythema appreciated ENT: Moist Mucus Membranes Neck: Trachea midline, Supple Chest/axilla: Normal chest wall appearance and motion. Cardiovascular: Regular rate and rhythm. No edema appreciated Respiratory: Normal respirations, no respiratory distress appreciated Abdomen/GI: Non distended, soft Back: Normal ROM Skin: General appearance color normal MS/ Extremity: Moves all extremities, no obvious deformities appreciated, no edema noted to the lower extremities Neuro: Awake and alert, normal gait Psych: Behavior is normal, Mood is normal, Patient is cooperative and pleasant Vital Signs: 10:58 BP 125 / 85; Pulse 83; Resp 16; Temp 97.8(TE); Pulse Ox 97% ; Weight 86.18 kg; Height 5 iw ft. 4 in. (162.56 cm); 12:02 BP 140 / 72; Pulse 93; Resp 17 S; Pulse Ox 100% on R/A; ca1 13:12 BP 152 / 74; Pulse 94; Resp 17 S; Pulse Ox 100% on R/A; ca1 10:58 Body Mass Index 32.61 (86.18 kg, 162.56 cm) iw MDM: 11:08 Patient medically screened. [facility] 13:23 Data reviewed: vital signs, nurses notes. Counseling: I had a detailed discussion with gilbert the patient and/or guardian regarding: the historical points, exam findings, and any diagnostic results supporting the discharge/admit diagnosis, lab results, radiology results, the need for outpatient follow up, to return to the emergency department if symptoms worsen or persist or if there are any questions or concerns that arise at home. ED course: Patient is alert and non toxic in appearance in the ED. Advised to follow up with ob further evaluation. Patient otherwise given strict return precautions. patient understood and agrees with the plan of care. . 10/29 11:09 Order name: Quantitative Hcg; Complete Time: 12:34 [facility] 10/29 11:09 Order name: Abo/rh Typing; Complete Time: 13:02 [facility] 10/29 11:09 Order name: Basic Metabolic Panel; Complete Time: 12:34 [facility] 10/29 11:09 Order name: CBC with Diff; Complete Time: 12:08 [facility] 10/29 11:53 Order name: Urine Dipstick--Ancillary (enter results); Complete Time: 12:34 10/29 11:53 Order name: Urine --Ancillary (enter results); Complete Time: 12:34 10/29 11:09 Order name: IV Saline Lock; Complete Time: 11:30 [facility] 10/29 11:09 Order name: Labs collected and sent; Complete Time: :30 [facility] 10/29 11:09 Order name: NPO; Complete Time: 11:30 [facility] 10/29 11:09 Order name: Urine Dipstick-Ancillary (obtain specimen); Complete Time: 11:30 [facility] 10/29 12:39 Order name: Transvaginal OB; Complete Time: 13:15 EDFL Administered Medications: No medications were administered Disposition: 13:54 Co-signature as Attending Physician, Jordan Gutiérrez MD I agree with the assessment and kdr plan of care. Disposition: 10/29/19 13:24 Discharged to Home. Impression: Threatened . - Condition is Stable. - Discharge Instructions: Threatened Miscarriage, Vaginal Bleeding During , First Trimester. - Medication Reconciliation Form, Thank You Letter, Antibiotic Education, Prescription Opioid Use, School release form form. - Follow up: Private Physician; When: 2 - 3 days; Reason: Recheck today's complaints, Continuance of care, Repeat Beta-HCG (48 Hours), Re-evaluation by your physician. Signatures: Dispatcher [employer] [facility] Jordan Gutiérrez MD MD kdr Mickail, Joel, PA PA [facility] Lisa Porter, KENNETH RN iw Yohana Thompson RN RN ca1 Corrections: (The following items were deleted from the chart) 12:39 12:34 1st Trimest Single 1st Fetus+US.RAD.BRZ ordered. [facility] 13:50 13:24 10/29/2019 13:24 Discharged to Home. Impression: Threatened . Condition ca1 is Stable. Forms are Medication Reconciliation Form, Thank You Letter, Antibiotic Education, Prescription Opioid Use. Follow up: Private Physician; When: 2 - 3 days; Reason: Recheck today's complaints, Continuance of care, Repeat Beta-HCG (48 Hours), Re-evaluation by your physician. [facility]
--- NOTE | 2019-10-29 13:25 | ER ---
Nurse's Notes [facility] Name: Miley Bedoya Age: 29 yrs Sex: Female : 1990 Arrival Date: 10/29/2019 Time: 10:49 Bed 16 Private MD: Diagnosis: Threatened Presentation: 10/29 10:55 Presenting complaint: Patient states: almost 8 weeks , has been spotting X 3 iw days, more bleeding today, not been seen by OB yet, also c/o mild cramping, G7, P3. Transition of care: patient was not received from another setting of care. Onset of symptoms was October 26, 2019. Risk Assessment: Do you want to hurt yourself or someone else? Patient reports no desire to harm self or others. Initial Sepsis Screen: Does the patient meet any 2 criteria? No. Patient's initial sepsis screen is negative. Does the patient have a suspected source of infection? No. Patient's initial sepsis screen is negative. Care prior to arrival: None. 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 - Social history:: Smoking status: Patient/guardian denies using tobacco. - Ebola Screening: : Patient negative for fever greater than or equal to 101.5 degrees Fahrenheit, and additional compatible Ebola Virus Disease symptoms Patient denies exposure to infectious person Patient denies travel to an Ebola-affected area in the 21 days before illness onset No symptoms or risks identified at this time. Screenin:30 Abuse screen: Denies threats or abuse. Denies injuries from another. Nutritional jl7 screening: No deficits noted. Tuberculosis screening: No symptoms or risk factors identified. Fall Risk IV access (20 points). Total Martino Fall Scale indicates No Risk (0-24 pts). Assessment: 11:30 Obstetrical Assessment: Patient reports abdominal cramping. General: Appears in no jl7 apparent distress. uncomfortable, Behavior is calm, cooperative. Pain: Complains of pain in suprapubic area and right lower quadrant Pain currently is 3 out of 10 on a pain scale. Neuro: Level of Consciousness is awake, alert, obeys commands, Oriented to person, place, time, situation. Cardiovascular: Patient's skin is warm and dry. Respiratory: Airway is patent Respiratory effort is even, unlabored, Respiratory pattern is regular, symmetrical. : Denies burning with urination. Derm: Skin is pink, warm \T\ dry. 12:30 Reassessment: Patient appears in no apparent distress at this time. Patient and/or ca1 family updated on plan of care and expected duration. Pain level reassessed. Patient is alert, oriented x 3, equal unlabored respirations, skin warm/dry/pink. 13:38 Reassessment: Patient appears in no apparent distress at this time. Patient is alert, ca1 oriented x 3, equal unlabored respirations, skin warm/dry/pink. Vital Signs: 10:58 BP 125 / 85; Pulse 83; Resp 16; Temp 97.8(TE); Pulse Ox 97% ; Weight 86.18 kg; Height 5 iw ft. 4 in. (162.56 cm); 12:02 BP 140 / 72; Pulse 93; Resp 17 S; Pulse Ox 100% on R/A; ca1 13:12 BP 152 / 74; Pulse 94; Resp 17 S; Pulse Ox 100% on R/A; ca1 10:58 Body Mass Index 32.61 (86.18 kg, 162.56 cm) iw ED Course: 10:49 Patient arrived in ED. mr 10:56 Ant Donahue PA is PHCP. jmm 10:56 Jordan Gutiérrez MD is Attending Physician. jmm 10:57 Triage completed. iw 11:01 Arm band placed on. iw 11:07 Koko Maciel, KENNETH is Primary Nurse. jl7 11:20 Initial lab(s) drawn, by ms, sent to lab. Urine collected: clean catch specimen. jl7 Inserted saline lock: 24 gauge in left hand, using aseptic technique. Blood collected. 11:30 Patient has correct armband on for positive identification. Bed in low position. Call jl7 light in reach. Side rails up X 1. Pulse ox on. NIBP on. 12:02 No provider procedures requiring assistance completed. ca1 13:03 Transvaginal OB In Process Unspecified. EDMS 13:38 Repeat lab(s) drawn. by ED staff, sent to lab. ca1 13:39 IV discontinued, intact, bleeding controlled, No redness/swelling at site. Pressure ca1 dressing applied. Administered Medications: No medications were administered Outcome: 13:24 Discharge ordered by . gilbert 13:39 Discharged to home ambulatory. ca1 13:39 Condition: stable 13:39 Discharge instructions given to patient, Instructed on discharge instructions, follow up and referral plans. Demonstrated understanding of instructions, follow-up care. 13:50 Patient left the ED. ca1 Signatures: Dispatcher [employer] EDMS Ant Donahue PA PA jmm Rivera, Mary Lisa Porter, RN RN iw Koko Maciel RN RN jl7 Yohana Thompson RN RN ca1 Corrections: (The following items were deleted from the chart) 11:00 10:58 BP 125 / 85; Pulse 83bpm; Resp 16bpm; 86.18 kg; Height 5 ft. 4 in.; BMI: 32.6; iw iw
[2019-10-29 14:09] VITALS: TEMP 97.8
[2019-10-29 14:10] VITALS: O2SAT 100
[2019-10-29 14:12] VITALS: BP 152/74
== END 2019-10-29 13:50 | disposition home or self-care (01) ==
LOC: ER 10:46
DX: O20.0 Threatened abortion (principal); Z3A.08 8 weeks gestation of pregnancy; Z88.5 Allergy status to narcotic agent; Z88.6 Allergy status to analgesic agent
CPT/HCPCS: 36415; 76817; 80048; 81003; 81025; 84702; 85025; 86900; 86901; 99284

== ENCOUNTER 2019-11-04 21:10 | Emergency (ER) | payer SELFPAY ==
[2019-11-04 22:08] LABS: Protime INR 1.05
[2019-11-04 22:20] LABS: ALT/SGPT 51 U/L (12-78); AST/SGOT 69 U/L (15-37); Albumin 3.8 g/dL (3.4-5.0); Alkaline Phosphatase 85 U/L (45-117); BUN Blood Urea Nitrogen 10 mg/dL (7-18); Bicarbonate 25 mmol/L (21-32); Bilirubin Direct 0.1 mg/dL (0-0.2); Bilirubin Total 0.4 mg/dL (0.2-1.0); Glucose Level 96 mg/dL (74-106); Magnesium 2.2 mg/dL (1.8-2.4); NT PRO-BNP 22 pg/mL (<125); Potassium 3.7 mmol/L (3.5-5.1); Protein, Total 7.8 g/dL (6.4-8.2); Sodium Level 139 mmol/L (136-145); Troponin (Emerg Dept Use Only) < 0.02 ng/mL (0.0-0.045)
[2019-11-04 22:32] LABS: Absolute Lymphocytes (CBC) 1.4 K/uL (0.7-4.9); Basophils % 0.3 % (0-1.3); Hematocrit 34.3 % (36.0-45.0); Lymphocytes % 19.7 % (15.3-44.8); MPV 9.1 fL (7.6-11.3); RBC Red Blood Cell Count 4.65 M/uL (3.86-4.86)
[2019-11-04] MEDS ORDERED: NA CHLORIDE 0.9% 1,000 ML ONE (23:50)
--- NOTE | 2019-11-05 01:15 | ER ---
Nurse's Notes [facility] Name: Miley Bedoya Age: 29 yrs Sex: Female : 1990 Arrival Date: 11/04/2019 Time: 21:13 Bed 28 Private MD: Diagnosis: Chest pain, unspecified;Threatened Presentation: 11/04 21:27 Presenting complaint: Patient states: Chest pain on/off today described as tightness. ca1 Pt also c/o tingling and numbness on L arm, nausea and a loose BM today. Denies cough and fever. Pt reported ant 9 weeks and was seen here last week for threatened . Transition of care: patient was not received from another setting of care. Onset of symptoms was November 04, 2019. Risk Assessment: Do you want to hurt yourself or someone else? Patient reports no desire to harm self or others. Initial Sepsis Screen: Does the patient meet any 2 criteria? No. Patient's initial sepsis screen is negative. Does the patient have a suspected source of infection? No. Patient's initial sepsis screen is negative. Care prior to arrival: None. 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 - Social history:: Smoking status: Patient/guardian denies using tobacco. - Ebola Screening: : Patient negative for fever greater than or equal to 101.5 degrees Fahrenheit, and additional compatible Ebola Virus Disease symptoms Patient denies exposure to infectious person Patient denies travel to an Ebola-affected area in the 21 days before illness onset No symptoms or risks identified at this time. Screenin:50 Abuse screen: Denies threats or abuse. Denies injuries from another. Nutritional mg2 screening: No deficits noted. Tuberculosis screening: No symptoms or risk factors identified. Fall Risk IV access (20 points). Assessment: 21:48 General: Appears in no apparent distress. comfortable, Behavior is calm, cooperative. mg2 Pain: Complains of pain in chest Pain does not radiate. Pain currently is 2 out of 10 on a pain scale. Quality of pain is described as aching, numb, Pain began gradually. Neuro: Level of Consciousness is awake, alert, obeys commands, Oriented to person, place, time, situation. Cardiovascular: Capillary refill < 3 seconds Patient's skin is warm and dry. Respiratory: Airway is patent Respiratory effort is even, unlabored, Respiratory pattern is regular, symmetrical. GI: No signs and/or symptoms were reported involving the gastrointestinal system. : No signs and/or symptoms were reported regarding the genitourinary system. EENT: No signs and/or symptoms were reported regarding the EENT system. Derm: Skin is intact, is healthy with good turgor, Skin is pink, warm \T\ dry. normal. Musculoskeletal: Circulation, motion, and sensation intact. Capillary refill < 3 seconds. 22:26 Reassessment: Patient appears in no apparent distress at this time. Patient and/or mg2 family updated on plan of care and expected duration. Pain level reassessed. Patient is alert, oriented x 3, equal unlabored respirations, skin warm/dry/pink. Critcal Lab result for d dimer relayed by Jamey- [id number], provider informed. 11/05 00:44 Reassessment: Patient appears in no apparent distress at this time. No changes from ad1 previously documented assessment. Patient and/or family updated on plan of care and expected duration. Pain level reassessed. pain level reassessed. Patient updated on expected duration for results. states no needs at this time. Vital Signs: 11/04 21:30 BP 156 / 86; Pulse 112; Resp 14 S; Temp 98.4(O); Pulse Ox 100% on R/A; Weight 88.9 kg ca1 (R); Height 5 ft. 4 in. (162.56 cm) (R); Pain 4/10; 23:43 BP 150 / 93; Pulse 102; Resp 18; Pulse Ox 100% on R/A; mg2 11/05 00:43 BP 144 / 68; Pulse 88; Resp 18; Pulse Ox 100% ; ad1 01:54 BP 131 / 73; Pulse 96; Resp 18; Pulse Ox 100% ; ad1 11/04 21:30 Body Mass Index 33.64 (88.90 kg, 162.56 cm) ca1 ED Course: 11/04 21:13 Patient arrived in ED. cl3 21:24 Jet Bryant PA is PHCP. jr8 21:24 Van Russ MD is Attending Physician. jr8 21:25 Harry Ledezma, KENNETH is Primary Nurse. mg2 21:29 Triage completed. ca1 21:30 Arm band placed on right wrist. EKG completed in triage. Results shown to MD. ca1 21:50 Patient has correct armband on for positive identification. monitoring analyst on. Pulse mg2 ox on. NIBP on. Door closed. 21:50 No provider procedures requiring assistance completed. Inserted saline lock: 22 gauge mg2 in right hand, using aseptic technique. Blood collected. Patient maintains SpO2 saturation greater than 95% on room air. 22:26 XRAY Chest (1 view) In Process Unspecified. EDMS 23:13 US Transvaginal Ob In Process Unspecified. EDMS 23:44 Inserted saline lock: 22 gauge in left forearm, using aseptic technique. mg2 11/05 00:29 CT completed. Patient tolerated procedure well. Patient moved to CT via stretcher. Patient moved back from CT. 00:40 CT Chest For PE Angio In Process Unspecified. EDMS 01:55 IV discontinued, X2. ad1 Administered Medications: 11/04 23:50 Drug: NS 0.9% 1000 ml Route: IV; Rate: 1000 ml; Site: left forearm; mg2 Outcome: 11/05 01:14 Discharge ordered by . jr8 01:54 Discharged to home ambulatory. ad1 01:54 Condition: stable 01:54 Discharge instructions given to patient, Instructed on discharge instructions, follow up and referral plans. Demonstrated understanding of instructions, follow-up care. 01:57 Patient left the ED. ad1 Signatures: Dispatcher [employer] EDMS Babar Abrams Anna RN RN ad1 Jet Bryant PA PA jr8 Harry Ledezma, KENNETH RN mg2 Yohana Thompson RN RN ca1 Rikki Lugo cl3
--- NOTE | 2019-11-05 01:16 | EDPHYS ---
Physician Documentation [facility] Name: Miley Bedoya Age: 29 yrs Sex: Female : 1990 Arrival Date: 11/04/2019 Time: 21:13 Bed 28 Private MD: ED Physician Van Russ HPI: 11/04 22:59 This 29 yrs old Female presents to ER via Ambulatory with complaints of Chest jr8 Pain, Numbness Of Hand. 22:59 The patient or guardian reports chest pain that is located primarily in the substernal jr8 area. The pain radiates to the left arm. Associated signs and symptoms: Pertinent positives: dizziness, shortness of breath. The chest pain is described as sharp. Duration: The patient or guardian reports multiple episodes. Modifying factors: The symptoms are alleviated by nothing. the symptoms are aggravated by nothing. Severity of pain: At its worst the pain was moderate in the emergency department the pain is unchanged. The patient has not experienced similar symptoms in the past. The patient has not recently seen a physician. 6 weeks . 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 - Social history:: Smoking status: Patient/guardian denies using tobacco. - Ebola Screening: : Patient negative for fever greater than or equal to 101.5 degrees Fahrenheit, and additional compatible Ebola Virus Disease symptoms Patient denies exposure to infectious person Patient denies travel to an Ebola-affected area in the 21 days before illness onset No symptoms or risks identified at this time. ROS: 22:59 Eyes: Negative for injury, pain, redness, and discharge, ENT: Negative for injury, jr8 pain, and discharge, Neck: Negative for injury, pain, and swelling, Abdomen/GI: Negative for abdominal pain, nausea, vomiting, diarrhea, and constipation, Back: Negative for injury and pain, MS/Extremity: Negative for injury and deformity, Skin: Negative for injury, rash, and discoloration. 22:59 Cardiovascular: Positive for chest pain, Negative for edema, orthopnea, palpitations, paroxysmal nocturnal dyspnea. 22:59 Respiratory: Positive for shortness of breath. 22:59 Neuro: Positive for dizziness. jr8 Exam: 22:59 Eyes: Pupils equal round and reactive to light, extra-ocular motions intact. Lids and jr8 lashes normal. Conjunctiva and sclera are non-icteric and not injected. Cornea within normal limits. Periorbital areas with no swelling, redness, or edema. ENT: Nares patent. No nasal discharge, no septal abnormalities noted. Tympanic membranes are normal and external auditory canals are clear. Oropharynx with no redness, swelling, or masses, exudates, or evidence of obstruction, uvula midline. Mucous membranes moist. Neck: Trachea midline, no thyromegaly or masses palpated, and no cervical lymphadenopathy. Supple, full range of motion without nuchal rigidity, or vertebral point tenderness. No Meningismus. Respiratory: Lungs have equal breath sounds bilaterally, clear to auscultation and percussion. No rales, rhonchi or wheezes noted. No increased work of breathing, no retractions or nasal flaring. Abdomen/GI: Soft, non-tender, with normal bowel sounds. No distension or tympany. No guarding or rebound. No evidence of tenderness throughout. Back: No spinal tenderness. No costovertebral tenderness. Full range of motion. Skin: Warm, dry with normal turgor. Normal color with no rashes, no lesions, and no evidence of cellulitis. MS/ Extremity: Pulses equal, no cyanosis. Neurovascular intact. Full, normal range of motion. Neuro: Awake and alert, GCS 15, oriented to person, place, time, and situation. Cranial nerves II-XII grossly intact. Motor strength 5/5 in all extremities. Sensory grossly intact. Cerebellar exam normal. Normal gait. 22:59 Cardiovascular: Rate: tachycardic, Rhythm: regular, Pulses: Pulses are 2+ in right radial artery and left radial artery. Heart sounds: murmur, systolic, heard in the aortic area, Edema: is not appreciated, JVD: is not appreciated. Vital Signs: 21:30 BP 156 / 86; Pulse 112; Resp 14 S; Temp 98.4(O); Pulse Ox 100% on R/A; Weight 88.9 kg ca1 (R); Height 5 ft. 4 in. (162.56 cm) (R); Pain 4/10; 23:43 BP 150 / 93; Pulse 102; Resp 18; Pulse Ox 100% on R/A; mg2 11/05 00:43 BP 144 / 68; Pulse 88; Resp 18; Pulse Ox 100% ; ad1 01:54 BP 131 / 73; Pulse 96; Resp 18; Pulse Ox 100% ; ad1 11/04 21:30 Body Mass Index 33.64 (88.90 kg, 162.56 cm) ca1 MDM: 11/04 21:24 Patient medically screened. jr8 11/05 01:13 Data reviewed: vital signs, nurses notes, lab test result(s), radiologic studies, CT jr8 scan, plain films, ultrasound. Data interpreted: Pulse oximetry: on room air is 100 %. Interpretation: normal. Counseling: I had a detailed discussion with the patient and/or guardian regarding: the historical points, exam findings, and any diagnostic results supporting the discharge/admit diagnosis, lab results, radiology results, the need for outpatient follow up, an OB/Gyne specialist, to return to the emergency department if symptoms worsen or persist or if there are any questions or concerns that arise at home. 11/04 21:33 Order name: Basic Metabolic Panel; Complete Time: 22:34 11/04 21:33 Order name: CBC with Diff; Complete Time: 22:37 11/04 21:33 Order name: LFT's; Complete Time: 22:34 11/04 21:33 Order name: Magnesium; Complete Time: 22:34 11/04 21:33 Order name: NT PRO-BNP; Complete Time: 22:34 11/04 21:33 Order name: PT-INR; Complete Time: 22:34 11/04 21:33 Order name: Troponin (emerg Dept Use Only); Complete Time: 22:34 11/04 21:33 Order name: XRAY Chest (1 view) 11/04 21:33 Order name: EKG; Complete Time: 21:34 11/04 21:33 Order name: Cardiac monitoring; Complete Time: 21:38 11/04 21:33 Order name: DD; Complete Time: 22:34 8 11/04 22:52 Order name: US Transvaginal Ob 11/04 22:53 Order name: CT Chest For PE Angio 11/04 21:33 Order name: EKG - Nurse/Tech; Complete Time: 21:38 11/04 21:33 Order name: IV Saline Lock; Complete Time: 21:47 11/04 21:33 Order name: Labs collected and sent; Complete Time: 21:47 11/04 21:33 Order name: O2 Per Protocol; Complete Time: 21:48 11/04 21:33 Order name: O2 Sat Monitoring; Complete Time: 21:48 Administered Medications: 11/04 23:50 Drug: NS 0.9% 1000 ml Route: IV; Rate: 1000 ml; Site: left forearm; mg2 Disposition: 11/05 05:44 Co-signature as Attending Physician, Van Russ MD I agree with the assessment and tw4 plan of care. Disposition: 11/05/19 01:14 Discharged to Home. Impression: Chest pain, unspecified, Threatened . - Condition is Stable. - Discharge Instructions: Nonspecific Chest Pain, Threatened Miscarriage, Blighted Ovum. - Medication Reconciliation Form, Thank You Letter, Antibiotic Education, Prescription Opioid Use form. - Follow up: Private Physician; When: 2 - 3 days; Reason: Recheck today's complaints, Continuance of care, Re-evaluation by your physician. - Problem is new. - Symptoms have improved. Signatures: Dispatcher [employer] EDMS Angela Garcia RN RN ad1 Jet Bryant PA PA jr8 Van Russ MD MD tw4 Harry Ledezma RN RN mg2 Yohana Thompson RN RN ca1 Corrections: (The following items were deleted from the chart) 11/04 23:00 22:59 Eyes: Negative for injury, pain, redness, and discharge, ENT: Negative for jr8 injury, pain, and discharge, Neck: Negative for injury, pain, and swelling, Abdomen/GI: Negative for abdominal pain, nausea, vomiting, diarrhea, and constipation, Back: Negative for injury and pain, MS/Extremity: Negative for injury and deformity, Skin: Negative for injury, rash, and discoloration, Neuro: Negative for headache, weakness, numbness, tingling, and seizure, jr8 11/05 01:57 01:14 11/05/2019 01:14 Discharged to Home. Impression: Chest pain, unspecified; ad1 Threatened . Condition is Stable. Forms are Medication Reconciliation Form, Thank You Letter, Antibiotic Education, Prescription Opioid Use. Follow up: Private Physician; When: 2 - 3 days; Reason: Recheck today's complaints, Continuance of care, Re-evaluation by your physician. Problem is new. Symptoms have improved. jr8
[2019-11-05 02:10] VITALS: TEMP 98.4; O2SAT 100
[2019-11-05 02:14] VITALS: BP 131/73
--- NOTE | 2019-11-05 07:45 | EKG ---
Test Date: 2019-11-04 Test Time: 21:33:28 Captain Of Guards: MEASUREMENT RESULTS: Intervals: Rate: 102 UT: 118 QRSD: 92 QT: 364 QTc: 474 [place]: P: 65 UT: 118 QRS: 48 T: 38 INTERPRETIVE STATEMENTS: Sinus tachycardia Otherwise normal ECG No previous ECG available for comparison Electronically Signed On 11-05-19 07:44:21 CARTOON ARTIST by Bebeto Jerez
--- NOTE | 2019-11-05 08:35 | RAD REPORT ---
EXAM DESCRIPTION: RAD - Chest Single View - 11/04/2019 10:26 pm CLINICAL HISTORY: Chest pain;Dyspnea Chest pain. COMPARISON: Chest Pa And Lat (2 Views) dated 09/10/2019; CHEST PA AND LAT 2 VIEW dated 12/20/2013; NATI ST SINGLE VIEW dated 02/27/2013 FINDINGS: Portable technique limits examination quality. The lungs are grossly clear. The heart is upper limit normal in size. No displaced fractures. IMPRESSION: No acute intrathoracic process suspected.
--- NOTE | 2019-11-05 08:38 | RAD REPORT ---
EXAM DESCRIPTION: US - Transvaginal OB - 11/04/2019 11:13 pm CLINICAL HISTORY: continued spotting. ;Abd cramping, COMPARISON: Transvaginal OB dated 10/29/2019 FINDINGS: A single gestational sac is seen within the uterus. The sac is a rounded appearance and martin s a mean sac diameter 13 mm corresponding to 6 weeks 1 day gestational age. No yolk sac or pole identified. The maternal adnexa are within normal limits. Bowel gas obscures both ovaries. IMPRESSION: Gestational sac is again seen without evidence of a yolk sac or embryo. The findings fav or blighted ovum over early IUP. However, serial HCG levels and followup ultrasound in 7-10 days woul d be recommended.
--- NOTE | 2019-11-05 12:01 | RAD REPORT ---
EXAM DESCRIPTION: Chest For Pe Angio CLINICAL HISTORY: Elevated DD beyond adjustment;Chest pain;Dyspnea COMPARISON: Chest CT February 27, 2013 TECHNIQUE: Multiple helical axial tomographic images were obtained of the chest following administra tion of intravenous contrast per angiographic protocol. Coronal and sagittal reformatted images were obtained. This exam was performed according to our departmental dose-optimization program, which includes autom ated exposure control, adjustment of the mA and/or kV according to patient size and/or use of iterati ve reconstruction technique. FINDINGS: Thyroid gland: unremarkable. Axilla: unremarkable. Pulmonary arteries: Pulmonary arteries appear patent. No evidence of pulmonary embolism. Aorta: No evidence of aortic dissection or aneurysm. Mediastinum: Unremarkable. No adenopathy. Heart: Heart is normal in size. Lungs/airways: No consolidation. Airways are patent. Pleural spaces: No significant pleural effusion. No pneumothorax. Osseous: Unremarkable. Soft tissues: Unremarkable. Visualized abdomen: Unremarkable. IMPRESSION: No acute intrathoracic abnormality. Electronically signed by: Kiok Chung MD 11/05/2019 12:58 AM HANDY WORKER Due to temporary technical issues with the PACS/Fluency reporting system, reports are being signed by the in house radiologist as a courtesy to ensure prompt reporting. The interpreting radiologist is f ully responsible for the content of the report.
== END 2019-11-05 01:57 | disposition home or self-care (01) ==
LOC: ER 21:10
DX: O20.0 Threatened abortion (principal); Z3A.01 Less than 8 weeks gestation of pregnancy; R07.9 Chest pain, unspecified; Z88.6 Allergy status to analgesic agent
CPT/HCPCS: 36415; 71045; 71275; 76817; 80048; 80076; 83735; 83880; 84484; 85025; 85379; 85610; 93005; 99285; J7030; Q9967

== ENCOUNTER 2019-11-15 19:50 | Emergency (ER) | payer SELFPAY ==
[2019-11-15 21:36] LABS: Basophils % 0.5 % (0-1.3); Hematocrit 33.4 % (36.0-45.0); Lymphocytes % 17.7 % (15.3-44.8); MPV 8.2 fL (7.6-11.3); RBC Red Blood Cell Count 4.49 M/uL (3.86-4.86)
[2019-11-15 22:05] LABS: BUN Blood Urea Nitrogen 6 mg/dL (7-18); Bicarbonate 26 mmol/L (21-32); Glucose Level 109 mg/dL (74-106); HCG, Quantitative 131 mIU/mL (1-3); Potassium 3.8 mmol/L (3.5-5.1); Sodium Level 140 mmol/L (136-145)
[2019-11-15 22:09] LABS: Urine Blood 2+ (NEG); Urine Glucose NEGATIVE (NEG); Urine Protein NEGATIVE (NEG); Urine pH 8.5 (5.0-7.0)
--- NOTE | 2019-11-15 22:21 | ER ---
Nurse's Notes [facility] Name: Miley Bedoya Age: 29 yrs Sex: Female : 1990 Arrival Date: 11/15/2019 Time: 19:52 Bed 25 Private MD: Diagnosis: Spontaneous ;Anemia, unspecified Presentation: 11/15 19:55 Presenting complaint: Miscarried 1 week ago, reports heavy vaginal bleeding with large hb clots and near syncope today. Pt reports she was approx 10 weeks at the time of miscarriage. . Transition of care: patient was not received from another setting of care. Onset of symptoms was November 15, 2019. Risk Assessment: Do you want to hurt yourself or someone else? Patient reports no desire to harm self or others. Initial Sepsis Screen: Does the patient meet any 2 criteria? No. Patient's initial sepsis screen is negative. Does the patient have a suspected source of infection? No. Patient's initial sepsis screen is negative. Care prior to arrival: None. 19:55 Method Of Arrival: Ambulatory hb 19:55 Acuity: JIMMY 3 hb Historical: - Allergies: 19:57 Demerol; hb 19:57 Stadol; hb - Home Meds: 19:57 None [Active]; hb - PMHx: 19:57 Emetophobia; ITP; Migraines; hb - PSHx: 19:57 ; hb - Immunization history:: Adult Immunizations up to date. - Coronavirus screen:: The patient has NOT traveled to [place], [place], or [place] in the past 14 days. Proceed with normal triage process as indicated. The patient has NOT had contact with known/suspected case of Coronavirus?. - Social history:: Smoking status: Patient denies any tobacco usage or history of. - Family history:: not pertinent. - Ebola Screening: : No symptoms or risks identified at this time. - Hospitalizations: : No recent hospitalization is reported. Screenin:40 Abuse screen: Denies threats or abuse. Denies injuries from another. Nutritional ss screening: No deficits noted. Tuberculosis screening: Never had TB. Fall Risk None identified. Assessment: 19:55 General: Appears in no apparent distress. Behavior is calm, cooperative, Reports ss fatigue for >3 days, Denies feeling ill. Pain: Complains of pain in abdomen Pain currently is 4 out of 10 on a pain scale. Quality of pain is described as crampy. Neuro: Level of Consciousness is awake, alert, obeys commands, Oriented to person, place, time, situation. Cardiovascular: Capillary refill < 3 seconds is brisk in bilateral fingers. Respiratory: Airway is patent Respiratory effort is even, unlabored. GI: Patient currently denies diarrhea, nausea, vomiting. : Reports vaginal bleeding that is with clots, heavy flow since x 5 days Denies burning with urination, urinary frequency. Derm: Skin is intact, is healthy with good turgor, Skin is dry. Musculoskeletal: Circulation, motion, and sensation intact. Range of motion: intact in all extremities, Swelling absent. 20:42 Reassessment: Pt attempting to provide urine specimen at this time. ss 20:53 Reassessment: Ultrasound at bedside. ss 21:50 Reassessment: Patient appears in no apparent distress at this time. Patient and/or ss family updated on plan of care and expected duration. Pain level reassessed. awaiting results. 22:23 Reassessment: Patient appears in no apparent distress at this time. Patient and/or ss family updated on plan of care and expected duration. Pain level reassessed. Patient is alert, oriented x 3, equal unlabored respirations, skin warm/dry/pink. pt ambulated to restroom with steady gait. Patient denies pain at this time. Vital Signs: 19:57 BP 153 / 97; Pulse 99; Resp 16; Temp 97.8; Pulse Ox 99% on R/A; Weight 86.18 kg; Height hb 5 ft. 4 in. (162.56 cm); Pain 4/10; 19:57 Body Mass Index 32.61 (86.18 kg, 162.56 cm) hb ED Course: 19:52 Patient arrived in ED. jg7 19:56 Triage completed. hb 19:57 Arm band placed on. hb 19:58 Khalida Villa, KENNETH is Primary Nurse. ss 20:15 Maulik Grace MD is Attending Physician. rn 20:40 Patient has correct armband on for positive identification. Bed in low position. Call ss light in reach. 21:14 Ultrasound completed. Patient tolerated well. Notified ED Physician . sg3 21:14 US Pelvis Complete In Process Unspecified. EDMS 21:27 Inserted saline lock: 22 gauge in left hand, using aseptic technique. Blood collected. hb 22:20 Torres Rodarte MD is Referral Physician. rn 22:44 No provider procedures requiring assistance completed. IV discontinued, intact, ss bleeding controlled, No redness/swelling at site. Pressure dressing applied. Administered Medications: No medications were administered Outcome: 22:20 Discharge ordered by MD. rn 22:44 Discharged to home ambulatory, with family. ss 22:44 Condition: good 22:44 Demonstrated understanding of instructions, follow-up care, medications. 22:46 Patient left the ED. ss Signatures: Dispatcher [employer] EDMS Maulik Grace MD MD rn Smirch, Shelby, RN RN Keira Mathis RN RN Nancy Quan sg3 Geovanna [id number] Corrections: (The following items were deleted from the chart) 20:38 20:37 BP 206 / 107; Pulse 77bpm; Resp 18bpm; Pulse Ox 100% RA; Pain 0/10; ss ss
--- NOTE | 2019-11-15 22:21 | EDPHYS ---
Physician Documentation [facility] Name: Miley Bedoya Age: 29 yrs Sex: Female : 1990 Arrival Date: 11/15/2019 Time: 19:52 Bed 25 Private MD: ED Physician Maulik Grace HPI: 11/15 20:30 This 29 yrs old Female presents to ER via Ambulatory with complaints of rn Vaginal Bleeding. 20:30 The patient presents with vaginal bleeding that is moderate, with clots. Onset: The rn symptoms/episode began/occurred 1 week(s) ago. Modifying factors: The symptoms are alleviated by nothing, the symptoms are aggravated by standing up. Associated signs and symptoms: Pertinent positives: vaginal bleeding, Pertinent negatives:. Severity of symptoms: At their worst the symptoms were moderate, in the emergency department the symptoms are unchanged. The patient has not experienced similar symptoms in the past. The patient has been recently seen by a physician:. Reports diagnosed with miscarriage this past week, was approx 10 weeks at the time, reports has passed tissue, seemed intact, has been passing clots, got worse yesterday and today, lightheaded, no syncope/sob/chest pain. . Historical: - Allergies: 19:57 Demerol; hb 19:57 Stadol; hb - Home Meds: 19:57 None [Active]; hb - PMHx: 19:57 Emetophobia; ITP; Migraines; hb - PSHx: 19:57 ; hb - Immunization history:: Adult Immunizations up to date. - Coronavirus screen:: The patient has NOT traveled to [place], [place], or [place] in the past 14 days. Proceed with normal triage process as indicated. The patient has NOT had contact with known/suspected case of Coronavirus?. - Social history:: Smoking status: Patient denies any tobacco usage or history of. - Family history:: not pertinent. - Ebola Screening: : No symptoms or risks identified at this time. - Hospitalizations: : No recent hospitalization is reported. ROS: 20:30 Constitutional: Negative for fever, chills, and weight loss, Eyes: Negative for injury, rn pain, redness, and discharge, Cardiovascular: Negative for chest pain, palpitations, and edema, Respiratory: Negative for shortness of breath, cough, wheezing, and pleuritic chest pain, Abdomen/GI: Negative for abdominal pain, nausea, vomiting, diarrhea, and constipation, : + vaginal bleeding MS/Extremity: Negative for injury and deformity, Skin: Negative for injury, rash, and discoloration, Neuro: Negative for headache, weakness, numbness, tingling, and seizure. Exam: 20:30 Constitutional: This is a well developed, well nourished patient who is awake, alert, rn and in no acute distress. Ambulatory to room without difficulty or assistance Head/Face: Normocephalic, atraumatic. ENT: mmm Cardiovascular: Regular rate and rhythm. No pulse deficits. Respiratory: No increased work of breathing, no retractions or nasal flaring. Speaking full sentences Abdomen/GI: soft, mild suprapubic tenderness MS/ Extremity: Pulses equal, no cyanosis. Neurovascular intact. Full, normal range of motion. Equal circumference. Neuro: Awake and alert, GCS 15, oriented to person, place, time, and situation. Cranial nerves II-XII grossly intact. Motor strength 5/5 in all extremities. Sensory grossly intact. Cerebellar exam normal. Normal gait. Vital Signs: 19:57 BP 153 / 97; Pulse 99; Resp 16; Temp 97.8; Pulse Ox 99% on R/A; Weight 86.18 kg; Height hb 5 ft. 4 in. (162.56 cm); Pain 4/10; 19:57 Body Mass Index 32.61 (86.18 kg, 162.56 cm) hb MDM: 20:15 Patient medically screened. rn 21:08 ED course: Per U/S tech, thickened endometrium, without retained products. . rn 22:19 Differential diagnosis: completing , anemia, retained products. Data reviewed: rn vital signs, nurses notes, lab test result(s), radiologic studies, ultrasound, and as a result, I will discharge patient. Counseling: I had a detailed discussion with the patient and/or guardian regarding: the historical points, exam findings, and any diagnostic results supporting the discharge/admit diagnosis, lab results, radiology results, the need for outpatient follow up, to return to the emergency department if symptoms worsen or persist or if there are any questions or concerns that arise at home. Special discussion: I discussed with the patient/guardian in detail that at this point there is no indication for admission to the hospital. It is understood, however, that if the symptoms persist or worsen the patient needs to return immediately for re-evaluation. Based on the history and exam findings, there is no indication for further emergent testing or inpatient evaluation. I discussed with the patient/guardian the need to see the OB Gyne specialist for further evaluation of the symptoms. 11/15 20:25 Order name: Quantitative Hcg rn 11/15 20:25 Order name: Abo/rh Typing rn 11/15 20:25 Order name: Basic Metabolic Panel; Complete Time: 22:19 rn 11/15 20:25 Order name: CBC with Diff; Complete Time: 21:49 rn 11/15 20:25 Order name: HCG, Quantitative; Complete Time: 22:19 EDMS 11/15 20:25 Order name: Urine Test (obtain specimen); Complete Time: 20:52 rn 11/15 20: Order name: IV Saline Lock; Complete Time: 21:50 rn 11/15 20:25 Order name: Labs collected and sent; Complete Time: 21:50 rn 11/15 20:25 Order name: NPO; Complete Time: 20:33 rn 11/15 20:25 Order name: Urine Dipstick-Ancillary (obtain specimen); Complete Time: 20:52 rn 11/15 20:25 Order name: US Pelvis Complete rn 11/15 21:04 Order name: Urine Dipstick--Ancillary (enter results); Complete Time: 22:19 ar5 11/15 21:05 Order name: Urine --Ancillary (enter results); Complete Time: 22:19 ar5 Administered Medications: No medications were administered Disposition: 11/15/19 22:20 Discharged to Home. Impression: Spontaneous , Anemia, unspecified. - Condition is Stable. - Discharge Instructions: Anemia, Nonspecific, Miscarriage. - Medication Reconciliation Form, Thank You Letter, Antibiotic Education, Prescription Opioid Use form. - Follow up: Torres Rodarte MD; When: 2 - 3 days; Reason: Recheck today's complaints, Re-evaluation by your physician. - Problem is an ongoing problem. - Symptoms have improved. Signatures: Dispatcher [employer] EDMS Maulik Grace MD MD rn Smirch, Shelby, RN RN ss Baxter, Heather, RN RN hb Corrections: (The following items were deleted from the chart) 21:32 20:25 ABO/RH typing ordered. EDCO EDMS 22:46 22:20 11/15/2019 22:20 Discharged to Home. Impression: Spontaneous ; Anemia, ss unspecified. Condition is Stable. Forms are Medication Reconciliation Form, Thank You Letter, Antibiotic Education, Prescription Opioid Use. Follow up: Torres Rodarte; When: 2 - 3 days; Reason: Recheck today's complaints, Re-evaluation by your physician. Problem is an ongoing problem. Symptoms have improved. rn
[2019-11-16 02:10] VITALS: BP 153/97; TEMP 97.8; O2SAT 99
--- NOTE | 2019-11-16 09:10 | RAD REPORT ---
EXAM DESCRIPTION: US - Pelvis Complete - 11/15/2019 9:13 pm CLINICAL HISTORY: 1 week ago with vaginal bleeding COMPARISON: none FINDINGS: The uterus measures 8 x 4 x 5cm. 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 The endometria l stripe measures up to 8 millimeters. Right ovary is normal in size echotexture. The left ovary was not seen secondary to overlying bowel g as. Right and left adnexa are unremarkable No significant free fluid is seen. IMPRESSION: No sonographic findings to suggest retained products of conception . The patient refused to have an endovaginal sonogram which does limit evaluation of the endometrium so mewhat . If the symptoms do not resolve then endovaginal sonogram would be recommended
== END 2019-11-15 22:46 | disposition home or self-care (01) ==
LOC: ER 19:50
DX: O03.9 Complete or unspecified spontaneous abortion without complication (principal); D64.9 Anemia, unspecified; Z88.6 Allergy status to analgesic agent
CPT/HCPCS: 36415; 76856; 80048; 81003; 81025; 84702; 85025; 99283

== ENCOUNTER 2020-01-04 05:53 | Emergency (ER) | payer SELFPAY ==
[2020-01-04] MEDS ORDERED: ALBUTEROL 2.5 MG/3 ML NEB SOL ONE (06:01)
[2020-01-04] MEDS ORDERED: IPRATROPIUM BROM 0.5MG/2.5ML ONE (06:01)
[2020-01-04] MEDS ORDERED: predniSONE 20 MG TAB ONE (06:57)
[2020-01-04] MEDS ORDERED: LEVALBUTEROL 1.25 MG/3 ML NEB ONE (06:58)
--- NOTE | 2020-01-04 07:07 | EDPHYS ---
Physician Documentation [facility] Name: Miley Bedoya Age: 29 yrs Sex: Female : 1990 Arrival Date: 01/04/2020 Time: 05:36 Bed 30 Private MD: ED Physician Van Russ HPI: 01/03 06:24 This 29 yrs old Female presents to ER via Ambulatory with complaints of tw4 Non-Productive Cough, Fever. 06:24 The patient or guardian reports cough, that is intermittent, difficulty breathing. tw4 Onset: The symptoms/episode began/occurred 1 week(s) ago. Severity of symptoms: At their worst the symptoms were mild, in the emergency department the symptoms are unchanged. Modifying factors: The symptoms are alleviated by nothing, the symptoms are aggravated by nothing. The patient has not experienced similar symptoms in the past. Historical: - Allergies: 05:49 Stadol; ea - Home Meds: 05:49 Albuterol Inhl [Active]; ea - PMHx: 05:49 Asthma; ea - PSHx: 05:49 ; ea - Immunization history:: Adult Immunizations up to date. - Social history:: Smoking status: Patient/guardian denies using tobacco, the patient reports quitting approximately 15 years ago. ROS: 06:24 Abdomen/GI: Negative for abdominal pain, nausea, vomiting, diarrhea, and constipation, tw4 Back: Negative for injury and pain, MS/Extremity: Negative for injury and deformity, Skin: Negative for injury, rash, and discoloration, Neuro: Negative for headache, weakness, numbness, tingling, and seizure. 06:24 Respiratory: Positive for cough, shortness of breath, wheezing, Negative for dyspnea on exertion, hemoptysis, orthopnea, pleurisy, shortness of breath. 06:24 Constitutional: Positive for body aches, fever, Negative for chills, fatigue, malaise, tw4 poor PO intake. Exam: 06:24 Constitutional: This is a well developed, well nourished patient who is awake, alert, tw4 and in no acute distress. Head/Face: Normocephalic, atraumatic. 06:24 Chest/axilla: Normal chest wall appearance and motion. Nontender with no deformity. No lesions are appreciated. Cardiovascular: Regular rate and rhythm with a normal S1 and S2. No gallops, murmurs, or rubs. Normal PMI, no JVD. No pulse deficits. Abdomen/GI: Soft, non-tender, with normal bowel sounds. No distension or tympany. No guarding or rebound. No evidence of tenderness throughout. Back: No spinal tenderness. No costovertebral tenderness. Full range of motion. Skin: Warm, dry with normal turgor. Normal color with no rashes, no lesions, and no evidence of cellulitis. MS/ Extremity: Pulses equal, no cyanosis. Neurovascular intact. Full, normal range of motion. Neuro: Awake and alert, GCS 15, oriented to person, place, time, and situation. Cranial nerves II-XII grossly intact. Motor strength 5/5 in all extremities. Sensory grossly intact. Cerebellar exam normal. Normal gait. 06:24 Respiratory: the patient does not display signs of respiratory distress, Respirations: normal, Breath sounds: wheezing: expiratory is heard diffusely. Vital Signs: 05:42 BP 133 / 84; Pulse 81; Resp 19; Temp 98.2; Pulse Ox 100% ; Weight 86.18 kg; Height 5 ea ft. 8 in. (172.72 cm); 07:00 BP 134 / 66; Pulse 95; Resp 19; Pulse Ox 98% ; ea 05:42 Body Mass Index 28.89 (86.18 kg, 172.72 cm) ea MDM: 06:24 Patient medically screened. tw4 07:00 Data reviewed: vital signs, nurses notes. Data reviewed: lab test result(s), Flu: tw4 negative radiologic studies. Data interpreted: Pulse oximetry: Interpretation: normal. Counseling: I had a detailed discussion with the patient and/or guardian regarding: the historical points, exam findings, and any diagnostic results supporting the discharge/admit diagnosis. Medication response: albuterol nebulizer treatment(s) relieved the patient's symptoms. The patient is no longer wheezing. Response to treatment: and as a result, I will discharge patient. 01/03 05:48 Order name: Flu; Complete Time: 07:12 tw4 01/03 07:12 Interpretation: Normal except. tw4 01/03 06:59 Order name: XRAY Chest (1 view) ea Administered Medications: 06:08 Drug: DuoNeb (3:1) (2.5 mg - 0.5 mg) 3 ml Route: Nebulizer; ea 06:58 Follow up: Response: No adverse reaction ea 06:57 Not Given (Patient Refused): predniSONE 60 mg PO once ea 06:57 Drug: Xopenex 1.25 mg Route: Inhalation; ea Disposition: 01/04/20 07:06 Discharged to Home. Impression: Acute bronchospasm, Acute upper respiratory infection, unspecified. - Condition is Stable. - Discharge Instructions: Bronchospasm, Adult, Asthma, Acute Bronchospasm, Asthma, Adult, [id number], Viral Respiratory Infection, [id number]. - Prescriptions for Ibuprofen 800 mg Oral Tablet - take 1 tablet by ORAL route every 8 hours As needed take with food; 30 tablet. Tessalon Perles 100 mg Oral Capsule - take 1 capsule by ORAL route every 8 hours As needed; 15 capsule. Albuterol Sulfate 2.5 mg /3 mL (0.083 %) Inhalation Solution for Nebulization - inhale 1 unit by NEBULIZATION route every 8 hours As needed; 1 box. Medrol (Serge) 4 mg Oral Tablets, Dose Pack - take 1 tablet by ORAL route as directed - follow package instructions; 1 packet. Albuterol Sulfate 90 mcg/actuation - inhale 1-2 puff by INHALATION route every 4-6 hours; 1 Inhaler. - Medication Reconciliation Form, Thank You Letter, Antibiotic Education, Prescription Opioid Use form. - Follow up: Private Physician; When: Upon discharge from the Emergency Department; Reason: Recheck today's complaints, Continuance of care. - Problem is new. - Symptoms have improved. Signatures: Dispatcher [employer] Khalida Serna RN RN ss Antunez, Elena, RN RN ea Wadley, Terrence, MD MD tw4 Corrections: (The following items were deleted from the chart) 06:29 06:24 Constitutional: Negative for fever, chills, and weight loss, Eyes: Negative for tw4 injury, pain, redness, and discharge, tw4 07:23 07:06 01/04/2020 07:06 Discharged to Home. Impression: Acute bronchospasm; Acute upper ss respiratory infection, unspecified. Condition is Stable. Forms are Medication Reconciliation Form, Thank You Letter, Antibiotic Education, Prescription Opioid Use. Follow up: Private Physician; When: Upon discharge from the Emergency Department; Reason: Recheck today's complaints, Continuance of care. Problem is new. Symptoms have improved. tw4
--- NOTE | 2020-01-04 07:07 | ER ---
Nurse's Notes [facility] Name: Miley Bedoya Age: 29 yrs Sex: Female : 1990 Arrival Date: 01/04/2020 Time: 05:36 Bed 30 Private MD: Diagnosis: Acute bronchospasm;Acute upper respiratory infection, unspecified Presentation: 01/03 05:42 Chief complaint: Patient states: Reports she has been having flu like symptoms since ea Sunday, reports congestion, and shortness of breath for the past two days. States "about two weeks ago I went to a [place] in [place] and there were a lot of people coughing I just thought it was the flu". Coronavirus screen: The patient has NOT traveled to a country currently being monitored by the CDC within the last 14 days. Ebola Screen: No symptoms or risks identified at this time. Initial Sepsis Screen: Does the patient meet any 2 criteria? No. Patient's initial sepsis screen is negative. Does the patient have a suspected source of infection? No. Patient's initial sepsis screen is negative. Risk Assessment: Do you want to hurt yourself or someone else? Patient reports no desire to harm self or others. 05:42 Method Of Arrival: Ambulatory ea 05:42 Acuity: JIMMY 3 ea Triage Assessment: 05:49 General: Appears in no apparent distress. Behavior is calm, cooperative, appropriate ea for age. Pain: Complains of pain in generalized pain. Historical: - Allergies: 05:49 Stadol; ea - Home Meds: 05:49 Albuterol Inhl [Active]; ea - PMHx: 05:49 Asthma; ea - PSHx: 05:49 ; ea - Immunization history:: Adult Immunizations up to date. - Social history:: Smoking status: Patient/guardian denies using tobacco, the patient reports quitting approximately 15 years ago. Screenin:47 Abuse screen: Denies threats or abuse. Nutritional screening: No deficits noted. ea Tuberculosis screening: No symptoms or risk factors identified. Fall Risk None identified. Assessment: 05:50 General: Appears in no apparent distress. Behavior is appropriate for age. Neuro: Level ea of Consciousness is awake, alert, obeys commands, Oriented to person, place, time, situation. Cardiovascular: Patient's skin is warm and dry. Respiratory: Airway is patent Respiratory effort is even, unlabored, Respiratory pattern is regular, symmetrical. Respiratory: Reports shortness of breath on exertion cough that is labored breathing since yesterday Auditory wheezing noted. Derm: Skin is pink, warm \\T\\ dry. 07:01 Reassessment: Patient and/or family updated on plan of care and expected duration. Pain ea level reassessed. Pt reports her wheezing has improved. Vital Signs: 05:42 BP 133 / 84; Pulse 81; Resp 19; Temp 98.2; Pulse Ox 100% ; Weight 86.18 kg; Height 5 ea ft. 8 in. (172.72 cm); 07:00 BP 134 / 66; Pulse 95; Resp 19; Pulse Ox 98% ; ea 05:42 Body Mass Index 28.89 (86.18 kg, 172.72 cm) ea ED Course: 05:36 Patient arrived in ED. ea 05:42 Mena Peters, KENNETH is Primary Nurse. ea 05:47 Van Russ MD is Attending Physician. tw4 05:47 Triage completed. ea 05:48 Patient has correct armband on for positive identification. Bed in low position. Call ea light in reach. Pulse ox on. NIBP on. 05:48 Arm band placed on right wrist. Patient placed in an exam room, on a stretcher, on ea pulse oximetry. 07:22 XRAY Chest (1 view) In Process Unspecified. EDCT 07:22 No provider procedures requiring assistance completed. Patient did not have IV access ss during this emergency room visit. Administered Medications: 06:08 Drug: DuoNeb (3:1) (2.5 mg - 0.5 mg) 3 ml Route: Nebulizer; ea 06:58 Follow up: Response: No adverse reaction ea 06:57 Not Given (Patient Refused): predniSONE 60 mg PO once ea 06:57 Drug: Xopenex 1.25 mg Route: Inhalation; ea Outcome: 07:06 Discharge ordered by . tw4 07:22 Discharged to home ambulatory. 07:22 Condition: good 07:22 Discharge instructions given to patient, Instructed on discharge instructions, follow up and referral plans. medication usage, Demonstrated understanding of instructions, follow-up care, medications, Prescriptions given X x5 07:23 Patient left the ED. ss Signatures: Dispatcher [facility] Khalida Villa RN RN Mena Jones RN RN Van Sexton MD MD tw4
[2020-01-04 07:37] VITALS: BP 134/66; O2SAT 98
--- NOTE | 2020-01-04 09:10 | RAD REPORT ---
EXAM DESCRIPTION: RAD - Chest Single View - 01/04/2020 7:21 am CLINICAL HISTORY: Congestion;Cough, flu-like symptoms COMPARISON: October 2019 TECHNIQUE: AP portable chest image was obtained 01/04/2020 7:21 am . FINDINGS: Lungs are clear of focal consolidation or mass. Lung markings are accentuated by a slightl y shallow inspiratory effort. . Heart and vasculature are normal. No measurable pleural effusion and no pneumothorax. No acute bony abnormality seen. No acute aortic findings suspected. IMPRESSION: Slightly underinflated lung logan accentuates the baseline interstitial pattern. A mini mal interstitial edema or infiltrate could be masked. No focal consolidation.
== END 2020-01-04 07:23 | disposition home or self-care (01) ==
LOC: ER 05:53
DX: J98.01 Acute bronchospasm (principal); J06.9 Acute upper respiratory infection, unspecified; Z88.5 Allergy status to narcotic agent
CPT/HCPCS: 71045; 87804; 94640; 99284; J7512

== ENCOUNTER 2021-02-26 23:35 | Emergency (ER) | payer SELFPAY ==
--- OUTSIDE RECORDS SUMMARY | 2021-02-26 23:38 | XMS REPORT | Continuity of Care Document ---
:1990 Author Organization [facility] t Address 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 M at[place] maternal Maternal 11-11 da thrombocyt Thrombocyt 00:00: Me dical openia openia 00 Group Sterilizat Sterilizat Problem Active 0 M atagor ion ion 11-11 da requested Requested 00:00: Medi roz 00 Group Allergies, Adverse Reactions, Alerts Allergy Allergy Status Severity Reaction(s) Onset Inactive Treating Comm ents Source Name Type Date Date Clinician Demerol Allergy Active Respiratory [facility] to distress da [facility] STADOL Allergy Active Respiratory La gor to distress da [facility] Medications Ordered Filled Start Stop Current Ordering Indication Dosage Frequency Signature Comments Components Source Medication Medication Date Date Medication? Clinician (SIG) Name Name No [facility] Vitamin Vitamin [facility] Vital Signs Vital Name Observation Time Observation Value Comments Source BP Diastolic 2018-11-11 00:00:00 85 mm[Hg] [facility] Height 2018-11-11 00:00:00 64 [in_i] [facility] BMI (Body Mass 2018-11-11 00:00:00 33.6 kg/m2 [employer] [facility]) Group BP Systolic 2018-11-11 00:00:00 122 mm[Hg] [facility] Body Weight 2018-11-11 00:00:00 196 [lb_av] [facility] Procedures Procedure Date / Time Performing Clinician Source Performed Removal of Intrauterine [facility] Delivery [facility] Plan of Care Planned Activity Planned Date Details Comments Source Diagnostic Test 2018-11-11 urinalysis, [place] Me [facility]ical Pending 00:00:00 dipstick [code = Group urinalysis, dipstick] Encounters Start End Encounter Admission Attending Care Care Encounter Source Date/Time Date/Time Type Type Clinicians Facility Department ID 2020-09-11 2020-09-11 Letter Doctor MARCY [id number] 00:00:00 00:00:00 (Out) Unassigned, [place] [id number] [place] [facility] [id number] 2020-01-05 2020-01-05 Office Pob1, Acute [facility] [id number] 16:05:16 16:20:09 Visit [facility] [id number] [place] [id number] [facility] [id number] nal 044 Office Building One 2018-11-11 2018-11-11 [facility] [place] - [id number] Bogdan starrr 00:00:00 00:00:00 Discovery sae Rosario MD: [address] [facility] [place] [address] , Ph. [phone] Results Test Description Test Time Test Comments Results Result Comments Source Urinalysis macro (dipstick) panel - Urine 2018-11-11 15:23:4 3 Test Item Value Reference Range Interpretation Comme nts Leukocytes (test code = Leukocytes) Negative Nitrite (test code = Nitrite) negative Urobilinogen (test code = Urobilinogen) 1 Protein (test code = Protein) 30 pH (test code = pH) 7.0 Blood (test code = Blood) Negative Specific [place] (test code = Specific [place]) 1.025 Ketone (test code = Ketone) Small Bilirubin (test code = Bilirubin) Small Glucose (test code = Glucose) Negative Appearance (test code = Appearance) Clear Color (test code = Color) Yellow [facility]
[2021-02-27 01:17] LABS: Urine Blood Negative (Negative); Urine Glucose Negative (Negative); Urine Protein Negative (Negative); Urine Specific Gravity >=1.030 (1.005-1.030)
[2021-02-27 01:21] LABS: Urine Specific Gravity/Preg >1.030 (1.005-1.030)
--- NOTE | 2021-02-27 01:46 | ER ---
Nurse's Notes [facility] Name: Miley Bedoya Age: 31 yrs Sex: Female : 1990 Arrival Date: 02/27/2021 Time: 00:09 Bed 7 Private MD: Diagnosis: Dysuria Presentation: 02/27 00:54 Chief complaint: Patient states: she was just treated for a UTI with macrobid and bb completed her antibiotics but is still having urinary symptoms with difficulty urinating, burning and back pain. Coronavirus screen: At this time, the client does not indicate any symptoms associated with coronavirus-19. Ebola Screen: No symptoms or risks identified at this time. Initial Sepsis Screen: Does the patient meet any 2 criteria? No. Patient's initial sepsis screen is negative. Risk Assessment: Do you want to hurt yourself or someone else? Patient reports no desire to harm self or others. Onset of symptoms was February 13, 2021. 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 - Social history:: Smoking status: Patient/guardian denies using tobacco, the patient reports quitting approximately 3 years ago. Screenin:09 Abuse screen: Denies threats or abuse. Nutritional screening: No deficits noted. ea Tuberculosis screening: No symptoms or risk factors identified. Fall Risk None identified. Assessment: 01:16 General: Appears in no apparent distress. Behavior is calm, cooperative, appropriate ea for age. Pain: Complains of pain in low back area and suprapubic area. Neuro: Level of Consciousness is awake, alert, obeys commands, Oriented to person, place, time, situation. Cardiovascular: Patient's skin is warm and dry. Respiratory: Airway is patent Respiratory effort is even, unlabored, Respiratory pattern is regular, symmetrical. Derm: Skin is pink, warm \T\ dry. 01:52 Reassessment: Patient and/or family updated on plan of care and expected duration. Pain ea level reassessed. Patient is alert, oriented x 3, equal unlabored respirations, skin warm/dry/pink. Discharge instruction given to patient verbalized the understanding of instruction. Pt left ED ambulatory tolerating well. Vital Signs: 00:54 BP 142 / 98; Pulse 112; Resp 16 S; Temp 98.4(O); Pulse Ox 100% on R/A; Weight 86.18 kg bb (R); Height 5 ft. 4 in. (162.56 cm) (R); Pain 4/10; 01:18 BP 116 / 85; Pulse 97; Resp 18; Pulse Ox 99% ; ea 00:54 Body Mass Index 32.61 (86.18 kg, 162.56 cm) ED Course: 00:09 Patient arrived in ED. cf2 00:33 Van Russ MD is Attending Physician. tw4 00:57 Triage completed. bb 00:58 Arm band placed on. bb 01:09 Mena Peters RN is Primary Nurse. ea 01:10 Patient has correct armband on for positive identification. Bed in low position. Call ea light in reach. Side rails up X2. 01:53 No provider procedures requiring assistance completed. Patient did not have IV access ea during this emergency room visit. Administered Medications: No medications were administered Outcome: 01:46 Discharge ordered by . tw4 01:53 Discharged to home ambulatory. ea 01:53 Condition: stable 01:53 Discharge instructions given to patient, Instructed on discharge instructions, follow up and referral plans. medication usage, Demonstrated understanding of instructions, follow-up care, medications, Prescriptions given X 2. 01:56 Patient left the ED. ea Signatures: Maggie Huddleston, RN Mena Salas, RN Van Jackson ea, MD MD 4 Elias Castellon cf2
[2021-02-27 05:15] VITALS: TEMP 98.4
[2021-02-27 05:16] VITALS: BP 116/85; O2SAT 99
--- NOTE | 2021-02-28 01:56 | EDPHYS ---
Physician Documentation [facility] Name: Miley Bedoya Age: 31 yrs Sex: Female : 1990 Arrival Date: 02/27/2021 Time: 00:09 Bed 7 Private MD: ED Physician Van Russ HPI: 02/27 22:28 This 31 yrs old Female presents to ER via Ambulatory with complaints of tw4 Urinary Frequency, Groin Pain. 22:28 The patient presents with urinary symptoms, dysuria. Onset: The symptoms/episode tw4 began/occurred 1 week(s) ago. Modifying factors: The symptoms are alleviated by nothing, the symptoms are aggravated by nothing. The patient has not experienced similar symptoms in the past. 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 - Social history:: Smoking status: Patient/guardian denies using tobacco, the patient reports quitting approximately 3 years ago. ROS: 22:28 Positive for urinary symptoms. tw4 22:28 Constitutional: Negative for fever, chills, and weight loss, Eyes: Negative for injury, pain, redness, and discharge, Cardiovascular: Negative for chest pain, palpitations, and edema, Respiratory: Negative for shortness of breath, cough, wheezing, and pleuritic chest pain, Abdomen/GI: Negative for abdominal pain, nausea, vomiting, diarrhea, and constipation, Back: Negative for injury and pain. 22:28 : Positive for injury or acute deformity, urinary symptoms, Negative for urinary frequency, small amounts. Exam: 22:28 Constitutional: This is a well developed, well nourished patient who is awake, alert, tw4 and in no acute distress. Head/Face: Normocephalic, atraumatic. Chest/axilla: Normal chest wall appearance and motion. Nontender with no deformity. No lesions are appreciated. Cardiovascular: Regular rate and rhythm with a normal S1 and S2. No gallops, murmurs, or rubs. Normal PMI, no JVD. No pulse deficits. Respiratory: Lungs have equal breath sounds bilaterally, clear to auscultation and percussion. No rales, rhonchi or wheezes noted. No increased work of breathing, no retractions or nasal flaring. Abdomen/GI: Soft, non-tender, with normal bowel sounds. No distension or tympany. No guarding or rebound. No evidence of tenderness throughout. Back: No spinal tenderness. No costovertebral tenderness. Full range of motion. Skin: Warm, dry with normal turgor. Normal color with no rashes, no lesions, and no evidence of cellulitis. MS/ Extremity: Pulses equal, no cyanosis. Neurovascular intact. Full, normal range of motion. Neuro: Awake and alert, GCS 15, oriented to person, place, time, and situation. Cranial nerves II-XII grossly intact. Motor strength 5/5 in all extremities. Sensory grossly intact. Cerebellar exam normal. Normal gait. Vital Signs: 00:54 BP 142 / 98; Pulse 112; Resp 16 S; Temp 98.4(O); Pulse Ox 100% on R/A; Weight 86.18 kg bb (R); Height 5 ft. 4 in. (162.56 cm) (R); Pain 4/10; 01:18 BP 116 / 85; Pulse 97; Resp 18; Pulse Ox 99% ; ea 00:54 Body Mass Index 32.61 (86.18 kg, 162.56 cm) bb MDM: 01:05 Patient medically screened. tw4 22:28 Data reviewed: vital signs, nurses notes. Data interpreted: Pulse oximetry: tw4 Interpretation: normal. Counseling: I had a detailed discussion with the patient and/or guardian regarding: the historical points, exam findings, and any diagnostic results supporting the discharge/admit diagnosis, lab results. Medical screen evaluation completed. EMTALA emergency medical condition absent. Special discussion: I discussed with the patient/guardian in detail that at this point there is no indication for admission to the hospital. It is understood, however, that if the symptoms persist or worsen the patient needs to return immediately for re-evaluation. 02/27 01:16 Order name: Urine Dipstick-Ancillary EDMS 02/27 01:19 Order name: Urine --Ancillary (enter results) mw2 02/27 00:34 Order name: Urine Dipstick-Ancillary (obtain specimen); Complete Time: 01:18 tw4 02/27 01:19 Order name: Urine --Ancillary [facility] 02/27 01:54 Order name: Urine Culture ea 02/27 01:55 Order name: Urine Culture [facility] 02/27 00:34 Order name: Urine Test (obtain specimen); Complete Time: 01:18 tw4 Administered Medications: No medications were administered Disposition: 02/27/21 01:46 Discharged to Home. Impression: Dysuria. - Condition is Stable. - Discharge Instructions: Dysuria. - Prescriptions for Keflex 500 mg Oral Capsule - take 1 capsule by ORAL route every 12 hours for 10 days; 20 capsule. Pyridium 200 mg Oral Tablet - take 1 tablet by ORAL route every 8 hours for 3 days; 9 tablet. - Medication Reconciliation Form, Thank You Letter, Antibiotic Education, Prescription Opioid Use form. - Follow up: Private Physician; When: Upon discharge from the Emergency Department; Reason: Recheck today's complaints, Continuance of care, Re-evaluation by your physician. - Problem is new. - Symptoms have improved. Signatures: Dispatcher [employer] [facility] Maggie Huddleston RN RN Mena Travis RN RN ea Wadley, Terrence, MD MD tw4 Corrections: (The following items were deleted from the chart) 01:56 01:46 02/27/2021 01:46 Discharged to Home. Impression: Dysuria. Condition is Stable. ea Forms are Medication Reconciliation Form, Thank You Letter, Antibiotic Education, Prescription Opioid Use. Follow up: Private Physician; When: Upon discharge from the Emergency Department; Reason: Recheck today's complaints, Continuance of care, Re-evaluation by your physician. Problem is new. Symptoms have improved. tw4
== END 2021-02-27 01:56 | disposition home or self-care (01) ==
LOC: ER 23:35
DX: R30.0 Dysuria (principal)
CPT/HCPCS: 81003; 81025; 87086; 87088; 99282